=== PATIENT | male | born 1945 | race Caucasian/White ===

== ENCOUNTER 2023-07-05 07:05 | Inpatient (IN) | payer MEDICARE, OTHER ==
[~2023-07-05] VITALS: Ht 185.4 cm; Wt 86.5 kg
[2023-07-05 08:11] VITALS: BP 134/79; PULSE 81; RESP 18; O2SAT 97
[2023-07-05] MEDS: SODIUM CHLORIDE 0.9% 1,000 ML IV ONE (08:45)
[2023-07-05] MEDS ORDERED: CLINDAMYCIN 600MG IV 50 ML IV ONE (08:45)
[2023-07-05] MEDS ORDERED: cefTRIAXone 1GM/50ML D5W 50 ML IV ONE (08:45)
[2023-07-05] MEDS ORDERED: ENOXAPARIN SOD 40 MG/0.4 ML SYRINGE SC SCH (09:30)
[2023-07-05] MEDS ORDERED: DOCUSATE SOD 100 MG CAP PO PRN (09:30)
[2023-07-05] MEDS ORDERED: ONDANSETRON HCL 4 MG/2 ML VIAL IV PRN (09:30)
[2023-07-05] MEDS: SODIUM CHLORIDE 0.9% 1,000 ML IV SCH (09:30)
[2023-07-05] MEDS ORDERED: MORPHINE SULFATE INJ 2 MG/ml SYRG IV PRN (09:30)
[2023-07-05 10:01] LABS: Chloride 108 mmol/L (98-107); Sodium 141 mmol/L (136-145)
[2023-07-05 10:02] LABS: Anion Gap 6 (5-15); Calcium 8.8 mg/dL (8.5-10.1); Carbon Dioxide 27 mmol/L (20-30)
[2023-07-05 10:07] LABS: Blood Urea Nitrogen 15 mg/dL (9-23); Glucose 86 mg/dL (74-106)
[2023-07-05 10:11] LABS: Basophils # (auto) 0.1 10 ^3/uL (0-0.2); Basophils % (auto) 1.3 % (0.0-2.0); Eosinophils # (auto) 0.3 10 ^3/uL (0-0.8); Eosinophils % (auto) 5.9 % (0.0-7.0); Hematocrit 37.6 % (41.0-53.0); Hemoglobin 12.6 g/dL (13.5-17.5); Lymphocytes # (auto) 0.7 10 ^3/uL (0.4-5.4); Lymphocytes % (auto) 13.8 % (10.0-50.0); Mean Corpuscular Hemoglobin 32.3 pg (28.0-32.0); Mean Corpuscular Hgb Conc. 33.4 g/dL (32.0-36.0); Mean Corpuscular Volume 96.5 fL (80.0-100.0); Monocytes # (auto) 0.7 10 ^3/uL (0-1.3); Monocytes % (auto) 14.4 % (0.0-12.0); Neutrophils # (auto) 3.3 10 ^3/uL (1.6-8.6); Neutrophils % (auto) 64.6 % (37.0-80.0); Red Cell Distribution Width 14.3 % (11.8-14.3); White Blood Cell 5.1 10^3/uL (4.4-10.8)
[2023-07-05 10:48] LABS: Urine Bacteria FEW /hpf (None Seen); Urine Blood Negative /uL (Negative); Urine Clarity Clear (Clear); Urine Color Yellow (Yellow); Urine Hyaline Cast FEW /lpf (0 - 2); Urine Mucus FEW (None Seen); Urine Protein, UAD TRACE (Negative); Urine Specific Gravity 1.025 (1.001-1.035); Urine Urobilinogen 2 mg/dL (Negative); Urine WBC 60 /hpf (0 - 3)
[2023-07-05] MEDS ORDERED: CLINDAMYCIN 300MG IV 50 ML IV SCH (14:00)
== END 2023-07-05 13:04 | disposition left against medical advice (07) | DRG 603 ==
LOC: ER 07:05 → OVERFLOW 10:43
PROVIDERS: ADMIT Nurse Practitioner Family; ATTEND Nurse Practitioner Family
DX: L03.115 Cellulitis of right lower limb (principal); F17.210 Nicotine dependence, cigarettes, uncomplicated; Z53.29 Procedure and treatment not carried out because of patient's decision for other reasons
CPT/HCPCS: 36415; 80048; 81001; 85025; 87040; 93971; 96360; G0378

== ENCOUNTER 2024-07-29 00:37 | Inpatient (IN) | payer OTHER, MEDICARE ==
[~2024-07-29] VITALS: Ht 185.4 cm; Wt 89.6 kg
[2024-07-29] VITALS (9 sets, daily range): BP systolic 108–150; BP diastolic 72–101; PULSE 26–115; RESP 17–26; TEMP 98–98.6; O2SAT 93–99
--- NOTE | 2024-07-29 02:01 | DVH ---
CLINICAL HISTORY: Status post head injury TECHNIQUE: Helical imaging carried out from skull base to vertex without intravenous contrast. This e xam was performed according to our departmental dose optimization program. Up-to-date CT equipment an d radiation dose reduction techniques are utilized as appropriate. CTDIVol: 62.26 mGy DLP: 1302.8 mGy-cm WID: COMPARISON: None FINDINGS: Mild cerebral volume loss with concordant prominence of the subarachnoid spaces and ventricles. Mild patchy low attenuation in the cerebral white matter consistent with nonspecific white matter disease. Moderate right frontal scalp contusion. A smaller high posterior midline and left parietal scalp con tusion near the vertex. There is no midline shift or mass effect. The vasquez white matter interfaces are maintained. The basal cisterns are patent. There is no evidence of acute intracranial hemorrhage or extra-axial fluid raoul ection. The mastoid air cells and visualized paranasal sinuses are well-aerated. IMPRESSION: 1. Moderate sized right frontal scalp contusion and a smaller high posterior midline and left parieta l scalp contusion near the vertex. 2. No acute intracranial abnormality. 3. Mild cerebral volume loss and mild chronic microvascular ischemic change.
--- NOTE | 2024-07-29 02:12 | DVH ---
CLINICAL HISTORY: Status post fall off ladder TECHNIQUE: CT exam of the cervical spine was performed without intravenous contrast. This exam was pe rformed according to our departmental dose optimization program. Up-to-date CT equipment and radiatio n dose reduction techniques are utilized as appropriate. CTDI: 0.14+ 62.26 +11.38 DLP: 1302.8 WID: COMPARISON: None FINDINGS: Grade 1 anterolisthesis at C2-C3, C3-C4, C4-C5 and C7-T1, likely degenerative. The vertebral body hei ghts are maintained. No acute cervical fracture or subluxation is identified. There is multilevel moderate degenerative disc disease of the cervical spine with multilevel disc spa ce narrowing up to severe at C6-C7. Multilevel facet and uncovertebral hypertrophy results in multile jolanta neural foraminal stenosis up to severe bilaterally at C3-C4, severe on the right at C4-C5 and C5- C6 and moderate to severe bilaterally at C6-C7. There is multilevel disc osteophyte complexes resulti ng in multilevel mild spinal stenosis. The paraspinous soft tissues are unremarkable. Mildly displaced fracture of the posterior left 3rd rib. There is soft tissue emphysema in the poste rior left chest wall. There is a moderate left pneumothorax. There is mild emphysema. There is a analytics associate catrachita medial left clavicle fracture deformity with bony bridging, though fracture line remains visible. IMPRESSION: 1. Moderate left pneumothorax. 2. Mildly displaced fracture of the posterior left 3rd rib partially imaged. 3. No acute cervical spine fracture or traumatic malalignment. 4. Multilevel degenerative neural foraminal stenosis up to severe bilaterally at C3-C4 and on the rig ht at C4-C5 and C5-C6. 5. Multilevel mild degenerative spinal stenosis. 6. Fracture deformity of the medial left clavicle with bony bridging although fracture line remains v isible. 7. Mild emphysema. Critical Result: Left pneumothorax. Findings discussed with NEW SANCHEZ at 07/29/2024 02:07 AM, and acknowledged receipt and understandi ng of the findings. ..
--- NOTE | 2024-07-29 02:46 | ED.PDOC ---
Mult. trauma (HPI) HPI Comments C/C: HEAD INJURY S/P FALLING OFF A LADDER ABOUT 8FT HIGH. MODERATELY BLEEDING AND UNCONTROLLED. PATIENT DENIES LOC, DENIES PAIN. DUE TO AMOUNT OF BLOOD, UNABLE TO FULLY ASSESS ENTIRE WOUND AT THIS TIME. WHEN TOWEL WAS REMOVED TO ASSESS INJURY, BLOOD SHOT UPWARD, SO WOUND WAS RECOVERED. ALL VSS. A&OX4 Chief Complaint: Head Injury Time Seen by MD: 01:02 Reviewed notes: Human Resource Consultant Notes, Medications, Allergies Allergies: Coded Allergies: NO KNOWN ALLERGIES (Unverified , 07/29/24) Information Source: Patient Mode of Arrival: Ambulatory Past Medical History PAST MEDICAL HISTORY: COPD Past Medical History (Other): Emphysema Surgical History: Denies all surgeries Family History Family History: Reviewed,noncontributory to illness Social History Smoker: Cigarettes Alcohol: Denies ETOH Use Drugs: Denies Drug Use Lives In: Home Constitutional: denies: chills, diaphoresis, fatigue, fever, malaise, sweats, weakness, others EENTM: denies: blurred vision, double vision, ear bleeding, ear discharge, ear drainage, ear pain, ear ringing, eye pain, eye redness, hearing loss, mouth pain, mouth swelling, nasal discharge, nose bleeding, nose congestion, nose pain, photophobia, tearing, throat pain, throat swelling, voice changes, others Cardiovascular: denies: chest pain, dizzy spells, diaphoresis, Dyspnea on exertion, edema, irregular heart beat, left arm pain, lightheadedness, palpitations, PND, syncope, others Gastrointestinal: denies: abdomen distended, abdominal pain, blood streaked bowels, constipated, diarrhea, dysphagia, difficulty swallowing, hematemesis, melena, nausea, poor appetite, poor fluid intake, rectal bleeding, rectal pain, vomiting, others Genitourinary: denies: burning, dysuria, flank pain, frequency, hematuria, incontinence, penile discharge, penile sore, pain, testicle pain, testicle swelling, urgency, others Neurological: reports: headache; denies: dizziness, fainting, left sided numbness, left sided weakness, numbness, paresthesia, pre-existing deficit, right sided numbness, right sided weakness, seizure, speech problems, tingling, tremors, weakness, others Musculoskeletal: denies: back pain, gout, joint pain, joint swelling, muscle pain, muscle stiffness, neck pain, others Integumetry: denies: bruises, change in color, change in hair/nails, dryness, laceration, lesions, lumps, rash, wounds, others Allergic/Immunocompromised: denies: Difficulty Healing, Frequent Infections, Hives, Itching, others Hematologic/Lymphatic: denies: anemia, blood clots, easy bleeding, easy bruising, swollen glands, others Endocrine: denies: excessive hunger, excessive sweating, excessive thirst, excessive urination, flushing, intolerance to cold, intolerance to heat, unexplained weight gain, unexplained weight loss, others Psychiatric: denies: anxiety, bipolar disorder, depression, hopeless, panic disorder, schizophrenia, sleepless, suicidal, others Physical Exam General Appearance: No Apparent Distress, Normal HEENT: Normal ENT Inspection, Pharynx Normal, TMs Normal Neck: Full Range of Motion, Non-Tender Respiratory: Chest Non-Tender, Lungs Clear, No Respiratory Distress, Normal Breath Sounds Cardiovascular: No Edema, No JVD, No Murmur, No Gallop, Normal Peripheral Pulses, Regular Rate/Rhythm Breast Exam: Deferred Gastrointestinal: No Organomegaly, Non Tender, No Pulsatile Mass, Normal Bowel Sounds, Soft Genitalia: Deferred Pelvic: Deferred Rectal: Deferred Extremities: No calf tenderness, Normal capillary refill, Normal inspection, Normal range of motion, Non-tender, No pedal edema Musculoskeletal : Apperance: Normal Neurologic: Alert, branch manager trainee II-XII nml as Tested, No Motor Deficits, Normal Affect, Normal Mood, No Sensory Deficits Cerebellar Function: Normal Reflexes: Normal Skin: Dry, Lacerations (Half-dollar size open laceration to top of scalp), Normal Color, Warm Lymphatic: No Adenopathy Was a procedure done? Was a procedure done?: No Differential Diagnosis Multiple Trauma: Closed Head Injury, Fractures, Cerebral Contusion, Spine Injury Neck Injury: Cervical Fracture, Spinal Cord Injury X-Ray, Labs, Meds, VS Vital Signs Date Time Temp Pulse Resp B/P (MAP) Pulse Ox O2 Delivery O2 Flow Rate FiO2 07/29/24 05:00 99 11 154/90 (111) 99 07/29/24 03:59 98 15 147/86 07/29/24 03:29 110 16 138/80 07/29/24 03:00 110 16 138/80 (99) 94 5/26/25 01:20 26 26 94 Room Air* 0 21 07/29/24 01:18 97.8 98 26 142/95 (111) 94 97.8 07/29/24 01:14 98.2 73 18 159/99 (119) 94 98.2 07/29/24 01:00 98.2 65 17 121/73 (89) 98 98.2 Lab Test 07/29/24 04:36 07/29/24 02:31 Range/Units White Blood Count 8.0 4.4-10.8 10^3/uL Red Blood Count 3.85 L 4.5-5.90 10^6/uL Hemoglobin 12.4 L 13.5-17.5 g/dL Hematocrit 36.9 L 41.0-53.0 % Mean Corpuscular Volume 96.0 80.0-100.0 fL Mean Corpuscular Hemoglobin 32.3 H 28.0-32.0 pg Mean Corpuscular Hemoglobin Concent 33.7 32.0-36.0 g/dL Red Cell Distribution Width 14.0 11.8-14.3 % Platelet Count 179 140-450 10^3/uL Mean Platelet Volume 7.5 6.9-10.8 fL Neutrophils (%) (Auto) 80.0 37.0-80.0 % Lymphocytes (%) (Auto) 7.1 L 10.0-50.0 % Monocytes (%) (Auto) 11.2 0.0-12.0 % Eosinophils (%) (Auto) 1.2 0.0-7.0 % Basophils (%) (Auto) 0.5 0.0-2.0 % Neutrophils # (Auto) 6.4 1.6-8.6 10 ^3/uL Lymphocytes # (Auto) 0.6 0.4-5.4 10 ^3/uL Monocytes # (Auto) 0.9 0-1.3 10 ^3/uL Eosinophils # (Auto) 0.1 0-0.8 10 ^3/uL Basophils # (Auto) 0 0-0.2 10 ^3/uL Nucleated Red Blood Cells 0.1 % Sodium Level 140 136-145 mmol/L Potassium Level 4.8 3.5-5.1 mmol/L Chloride Level 108 H 98-107 mmol/L Carbon Dioxide Level 23 20-31 mmol/L Anion Gap 9 5-15 Blood Urea Nitrogen 41 H 9-23 mg/dL Creatinine 1.94 H 0.700-1.30 mg/dL Glomerular Filtration Rate Calc 35 >90 mL/min BUN/Creatinine Ratio 21.1 H 10.0-20.0 Serum Glucose 100 74-106 mg/dL Hemoglobin A1c 5.2 <5.7 % A1C Calcium Level 8.6 L 8.7-10.4 mg/dL Total Bilirubin 1.0 0.2-1.0 mg/dL Aspartate Amino Transferase (AST) 95 H 13-40 U/L Alanine Aminotransferase (ALT) 40 7-40 U/L Alkaline Phosphatase 105 46-116 U/L Total Protein 7.0 5.7-8.2 g/dL Albumin 3.6 3.2-4.8 g/dL Vitamin B12 Level 505 211-911 pg/mL Vitamin D 25-Hydroxy 40.5 30.0-100 ng/mL Folic Acid 23.23 >5.38 ng/mL Thyroid Stimulating Hormone (TSH) 2.78 0.55-4.78 uIU/mL Plasma/Serum Blood Alcohol < 3.0 <10 mg/dL Hepatitis B Surface Antibody Negative Negative Hepatitis B Core IgM Antibody Negative Negative Hepatitis C Antibody Positive *A Negative POC Glucose 103 70-106 mg/dl X-Ray, Labs, Meds, VS Comment IMAGING: CT BRAIN/HEAD IMPRESSION: 1. Moderate sized right frontal scalp contusion and a smaller high posterior midline and left parietal scalp contusion near the vertex. 2. No acute intracranial abnormality. 3. Mild cerebral volume loss and mild chronic microvascular ischemic change. CT CERVICAL SPINE IMPRESSION: 1. Moderate left pneumothorax. 2. Mildly displaced fracture of the posterior left 3rd rib partially imaged. 3. No acute cervical spine fracture or traumatic malalignment. 4. Multilevel degenerative neural foraminal stenosis up to severe bilaterally at C3-C4 and on the right at C4-C5 and C5-C6. 5. Multilevel mild degenerative spinal stenosis. 6. Fracture deformity of the medial left clavicle with bony bridging although fracture line remains visible. 7. Mild emphysema. PENDING CT CHEST PLAN: Patient placed for admission orders for hospitalist. Diagnosis: Moderate left pneumothorax, with chest tube Rib fracture Clavicle fracture Status post fall Clavicle fracture Time of 1ST Reevaluation: 00:55 Reevaluation 1ST: Unchanged Patient Education/Counseling: Diagnosis, Treatment, Prognosis, Need For Follow Up Family Education/Counseling: Diagnosis, Treatment, Prognosis, Need For Follow Up Departure 1 Departure Time of Disposition: 04:12 Impression: Primary Impression: Pneumothorax on left Additional Impressions: Closed head injury Qualified Codes: S09.90XA - Unspecified injury of head, initial encounter Rib fractures Qualified Codes: S22.42XA - Multiple fractures of ribs, left side, initial encounter for closed fracture Clavicle fracture Qualified Codes: S42.002A - Fracture of unspecified part of left clavicle, initial encounter for closed fracture Disposition: 09 ADMITTED INPATIENT Condition: Stable Discharged With: Self Critical Care Note Critical Care Time?: No Stability Stability form required: NEW Jamison July 29, 2024 02:46
[2024-07-29] MEDS: ONDANSETRON HCL 4 MG/2 ML VIAL IV ONE ×2 (03:29→09:24)
[2024-07-29] MEDS: MORPHINE SULFATE 4 MG/ML SYR/VIAL IV ONE (03:29)
[2024-07-29] MEDS: SODIUM CHLORIDE 0.9% 1,000 ML IV ONE (03:43)
--- NOTE | 2024-07-29 04:40 | DVHNC2 ---
Procedure - Patient with a moderate-sized pneumothorax. I performed a left chest tube insertion. I cleaned the area with chlorhexidine. I anesthetized the area with 1% lidocaine. I used a Jeff pneumothorax kit. I placed a pigtail catheter. Patient tolerated the procedure well without complications. GREGG KILGORE MD July 29, 2024 04:40
[2024-07-29 05:15] LABS: Basophils # (auto) 0 10 ^3/uL (0-0.2); Basophils % (auto) 0.5 % (0.0-2.0); Eosinophils # (auto) 0.1 10 ^3/uL (0-0.8); Eosinophils % (auto) 1.2 % (0.0-7.0); Hematocrit 36.9 % (41.0-53.0); Hemoglobin 12.4 g/dL (13.5-17.5); Lymphocytes # (auto) 0.6 10 ^3/uL (0.4-5.4); Lymphocytes % (auto) 7.1 % (10.0-50.0); Mean Corpuscular Hemoglobin 32.3 pg (28.0-32.0); Mean Corpuscular Hgb Conc. 33.7 g/dL (32.0-36.0); Monocytes # (auto) 0.9 10 ^3/uL (0-1.3); Monocytes % (auto) 11.2 % (0.0-12.0); Neutrophils # (auto) 6.4 10 ^3/uL (1.6-8.6); Nucleated Red Blood Cells % 0.1 %; Platelet Count (auto) 179 10^3/uL (140-450); Red Blood Cells 3.85 10^6/uL (4.5-5.90)
[2024-07-29] MEDS: LIDOCAINE W/ EPINEPHRINE 1% 20ML VIAL ID ONE (05:25)
[2024-07-29 05:30] LABS: Alanine Aminotransferase 40 U/L (7-40); Albumin 3.6 g/dL (3.2-4.8); Alkaline Phosphatase 105 U/L (46-116); Anion Gap 9 (5-15); Aspartate Aminotransferase 95 U/L (13-40); BUN/Creatinine Ratio 21.1 (10.0-20.0); Blood Urea Nitrogen 41 mg/dL (9-23); Calcium 8.6 mg/dL (8.7-10.4); Carbon Dioxide 23 mmol/L (20-31); Chloride 108 mmol/L (98-107); Glucose 100 mg/dL (74-106); Potassium 4.8 mmol/L (3.5-5.1); Sodium 140 mmol/L (136-145)
[2024-07-29] MEDS ORDERED: ONDANSETRON HCL 4 MG/2 ML VIAL IV PRN (05:45)
[2024-07-29] MEDS ORDERED: HYDROcodone-ACET 5/325MG TAB PO PRN (05:45)
[2024-07-29] MEDS ORDERED: ACETAMINOPHEN 325 MG TAB PO PRN (05:45)
[2024-07-29] MEDS: SODIUM CHLORIDE 0.9% 1,000 ML IV SCH (05:51)
--- NOTE | 2024-07-29 05:54 | DVHHP2 ---
History of Present Illness History of Present Illness Patient is 79 year old male with past medical of COPD was brought in after had a fall. As per patient he had the fall and hit his head. Patient reported he fell from a ladder almost 8 food when he was wheezing is house building a new room on the 2nd floor, he fell on his back and hit his head. Patient denied hitting chest or loss of consciousness. Patient had laceration on the scalp on the anterior and on the top of the scalp. Patient denied any chest pain no shortness a breath. CT Scan of the cervical spine revealed- Moderate left pneumothorax. Mildly displaced fracture of the posterior left 3rd rib partially imaged. No acute cervical spine fracture or traumatic malalignment. Multilevel degenerative neural foraminal stenosis up to severe bilaterally at C3-C4 and on the right at C4-C5 and C5-C6. Multilevel mild degenerative spinal stenosis. Fracture deformity of the medial left clavicle with bony bridging although fra cture line remains visible. Mild emphysema.CT HEAD -Moderate sized right frontal scalp contusion and a smaller high posterior midline and left parietal scalp contusion near the vertex. No acute intracranial abnormality. Mild cerebral volume loss and mild chronic microvascular ischemic change. CT chest-Moderate left pneumothorax with left lung interstitial opacities as seen on CT cervical spine. Mildly displaced left 1st and 2nd rib fractures. Cirrhotic liver morphology. Additional incidental findings as detailed above. CXR-Cardiomegaly. Left interstitial opacities. Possible trace left pleural effusion. CT abdomen and pelvis- Hepatic cirrhosis, Hyperdense right upper pole exophytic renal mass measuring 15 mm. This measures greater than fluid density. Ultrasound recommended. 3.3 cm hyperdense left lower pole exophytic mass measuring greater than fluid density. Dedicated renal ultrasound recommended. Past Medical History COPD Past Surgical History Bilateral hernia repair Past Social History Smoker, denies alcoholism or substance abuse Review of Systems Review of Systems Allergy- NKDA Patient was seen today at the bedside. P Cardiovascular- deny acute chest pain or shortness of breath or cough or palpitation Respiratory denies cough or short of breath or wheezing Gastrointestinal- denies any rectal bleeding, nausea or vomiting Musculoskeletal-denies acute joint swelling or tenderness or redness Neurological- denies acute dysarthria, dysphagia, change in vision Psychiatry- denies depression or SI or HI Skin- bruise on bilateral forearms Allergies: Coded Allergies: NO KNOWN ALLERGIES (Unverified , 07/29/24) Medications Current Medications Medications Dose Ordered Sig/Vinicius Route Start Time Stop Time Status Last Admin Dose Admin Sodium Chloride 10 ml Q8HR IV 07/29/24 06:00 UNV Sodium Chloride 1,000 ml @ 120 mls/hr Q8H20M IV 07/29/24 05:45 UNV Acetaminophen/ Hydrocodone Bitart 1 tab Q4HP PRN PO 07/29/24 05:45 UNV Ondansetron HCl 4 mg Q4HP PRN IV 07/29/24 05:45 UNV Acetaminophen 650 mg Q6HP PRN PO 07/29/24 05:45 UNV Exam Vital Signs Vital Signs Date Time Temp Pulse Resp B/P (MAP) Pulse Ox O2 Delivery O2 Flow Rate FiO2 07/29/24 03:29 110 16 138/80 07/29/24 01:14 98.2 94 98.2 Exam General examination- patient as cut injury on the scalp on the front and also in the top of the scalp, left hand swelling over left wrist HEENT- PEERLA,-open wound on the scalp Cardiovascular- S1-S2 audible, rate and rhythm regular, no murmur Respiratory- chest tube placed on the left side of the chest, no wheezing Gastrointestinal-nontender, bowel sound+. Nondistended Musculoskeletal-no acute joint swelling or tenderness or redness extremity- no leg edema, swelling over the left wrist close to the great to thumb Neurological--scalp injury on the front and the under top of the scalp Psychiatry- denies depression or SI or HI Skin- bruise in the bilateral forearm Labs/Xrays Labs Test 07/29/24 04:36 07/29/24 02:31 Range/Units White Blood Count 8.0 4.4-10.8 10^3/uL Red Blood Count 3.85 L 4.5-5.90 10^6/uL Hemoglobin 12.4 L 13.5-17.5 g/dL Hematocrit 36.9 L 41.0-53.0 % Mean Corpuscular Volume 96.0 80.0-100.0 fL Mean Corpuscular Hemoglobin 32.3 H 28.0-32.0 pg Mean Corpuscular Hemoglobin Concent 33.7 32.0-36.0 g/dL Red Cell Distribution Width 14.0 11.8-14.3 % Platelet Count 179 140-450 10^3/uL Mean Platelet Volume 7.5 6.9-10.8 fL Neutrophils (%) (Auto) 80.0 37.0-80.0 % Lymphocytes (%) (Auto) 7.1 L 10.0-50.0 % Monocytes (%) (Auto) 11.2 0.0-12.0 % Eosinophils (%) (Auto) 1.2 0.0-7.0 % Basophils (%) (Auto) 0.5 0.0-2.0 % Neutrophils # (Auto) 6.4 1.6-8.6 10 ^3/uL Lymphocytes # (Auto) 0.6 0.4-5.4 10 ^3/uL Monocytes # (Auto) 0.9 0-1.3 10 ^3/uL Eosinophils # (Auto) 0.1 0-0.8 10 ^3/uL Basophils # (Auto) 0 0-0.2 10 ^3/uL Nucleated Red Blood Cells 0.1 % Sodium Level 140 136-145 mmol/L Potassium Level 4.8 3.5-5.1 mmol/L Chloride Level 108 H 98-107 mmol/L Carbon Dioxide Level 23 20-31 mmol/L Anion Gap 9 5-15 Blood Urea Nitrogen 41 H 9-23 mg/dL Creatinine 1.94 H 0.700-1.30 mg/dL Glomerular Filtration Rate Calc 35 >90 mL/min BUN/Creatinine Ratio 21.1 H 10.0-20.0 Serum Glucose 100 74-106 mg/dL Calcium Level 8.6 L 8.7-10.4 mg/dL Total Bilirubin 1.0 0.2-1.0 mg/dL Aspartate Amino Transferase (AST) 95 H 13-40 U/L Alanine Aminotransferase (ALT) 40 7-40 U/L Alkaline Phosphatase 105 46-116 U/L Total Protein 7.0 5.7-8.2 g/dL Albumin 3.6 3.2-4.8 g/dL POC Glucose 103 70-106 mg/dl Assessment/Plan Assessment/Plan Assessment and plan Fall Head injury-patient had 5 suture and 20 moon on the scalp Scalp laceration and cut injury on the top in the front of the skull Left-sided pneumothorax, status post chest tube placement Acute hypoxic respiratory failure likely from pneumothorax Left clavicular fracture Left 3rd rib fracture in the posterior side Bruise in the bilateral forearms History of COPD, no acute exacerbation Emphysema mild Multilevel degenerative neural foraminal stenosis up to severe bilaterally at C3-C4 and on the right at C4-C5 and C5-C6. Multilevel mild degenerative spinal stenosis. Moderate sized right frontal scalp contusion and a smaller high posterior midline and left parietal scalp contusion near the vertex Mildly displaced fracture of the posterior left 3rd rib Suspected liver cirrhosis Left pleural effusion Bilateral renal mass CT Scan of the cervical spine revealed- Moderate left pneumothorax. Mildly displaced fracture of the posterior left 3rd rib partially imaged. No acute cervical spine fracture or traumatic malalignment. Multilevel degenerative neural foraminal stenosis up to severe bilaterally at C3-C4 and on the right at C4-C5 and C5-C6. Multilevel mild degenerative spinal stenosis. Fracture deformity of the medial left clavicle with bony bridging although fracture line remains visible. Mild emphysema. CT HEAD -Moderate sized right frontal scalp contusion and a smaller high posterior midline and left parietal scalp contusion near the vertex. No acute intracranial abnormality. Mild cerebral volume loss and mild chronic microvascular ischemic change. CXR-Cardiomegaly. Left interstitial opacities. Possible trace left pleural effusion. CT abdomen and pelvis- Hepatic cirrhosis, Hyperdense right upper pole exophytic renal mass measuring 15 mm. This measures greater than fluid density. Ultrasound recommended. 3.3 cm hyperdense left lower pole exophytic mass measuring greater than fluid density. Dedicated renal ultrasound recommended. Plan ordered Repeat chest x-ray at 12:00 p.m. today Status post left-sided chest tube placement Moon and suture on the scalp -20 moon, 5 sutures Ordered blood typing and cross matching Ordered two 20 gauge IV cannula Ordered ultrasound of the renal system to rule out any mass lesion Continue IV fluid as prescribed Pantoprazole as prescribed No DVT prophylaxis has moment as patient had active bleeding from scalp injury Monitor vitals Pain medication as prescribed Ordered orthopedic consult for clavicle fracture Monitor GCS Ordered UDS Goals of care, Code status ; discussed with >15 minutes PUD prophylaxis: pantoprazole DVT prophylaxis: Patient had active bleeding from the scalp cut injury Plan discussed with Dr. Gabriel , nursing staff, Total time spent on patient evaluation, chart review, assessment and plan, discussion discussion >35 minutes Plan discussed with: Patient, Other (RN) My Orders Orders - JAYE KILPATRICK RESIDENT Procedure Category Date Status Time Admit ADMIT 07/29/24 Transmitted 05:34 Code Status CODE 07/29/24 Transmitted 05:34 Sodium Chloride Lock PHA 07/29/24 Logged (Saline Lock Ns) 06:00 Sodium Chloride 0.9% PHA 07/29/24 Logged 05:45 Hydrocodone-Acet PHA 07/29/24 Logged 5/325mg Tab ([place] 05:45 Ondansetron Hcl PHA 07/29/24 Logged (Zofran) 05:45 Complete Blood Count LAB 07/30/24 Verified 04:00 Comprehensive LAB 07/30/24 Verified Metabolic Panel 04:00 Acetaminophen Tablet PHA 07/29/24 Logged (Tylenol Tablet) 05:45 Oxygen By Nasal RT 07/29/24 Transmitted Cannula 05:34 Notify Md Of Changes VANESSA 07/29/24 In Process From Base 05:34 Vice President Payer For VANESSA 07/29/24 In Process 24 Hours 05:34 Type And Screen BBK 07/29/24 Transmitted 05:36 Date of Service: July 29, 2024 Billing Provider: BLADIMIR GABRIEL MD Common Visit Codes: 45710-[id number] INP/OBS CARE (HIGH) Secondary Visit Codes: 52057-NRLBDIZI CARE PLAN 30 MINUTES JAYE KILPATRICK RESIDENT July 29, 2024 05:54
--- NOTE | 2024-07-29 05:57 | DVH ---
EXAM: XY CHEST XRAY 1 VIEW Indication: CHEST TUBE PLACEMENT Technique: Single frontal view of the chest was obtained Comparison: None FINDINGS: Lines and Tubes: Left pigtail catheter is visualized. Lungs: Left interstitial opacities. Pleura: Possible trace left pleural effusion. No pneumothorax. Cardiomediastinal contours: Cardiomegaly. Bones: No acute osseous abnormality. IMPRESSION: Cardiomegaly. Left interstitial opacities. Possible trace left pleural effusion.
--- NOTE | 2024-07-29 06:01 | DVH ---
Exam: CT CT AB PEL WO CON-NO ORAL OR IV History: UPPER ABDOMINAL PAIN STATUS POST TRAUMA Comparison Study: None Technique: Multidetector spiral CT of the abdomen was performed from lung bases to pubic symphysis. Imaging was performed without IV contrast. Axial, coronal and sagittal multiplanar reformats were ob tained from the axial data set by the technologist. Radiation Dose : CTDI volume is 10.75 mGy. Dose-length product is 536.17 mGy*cm Findings: Evaluation of solid organs is limited due to lack of intravenous contrast use. Lung Bases: Known left pneumothorax. Liver: Hepatic cirrhosis Gallbladder and Biliary Tree: Unremarkable Spleen: Unremarkable Pancreas: The pancreas is grossly normal in appearance. Adrenal Glands: Unremarkable Kidneys: Hyperdense right upper pole exophytic renal mass measuring 15 mm. This measures greater than fluid de nsity. Ultrasound recommended. 3.3 cm hyperdense left lower pole exophytic mass measuring greater anuja n fluid density. Dedicated renal ultrasound recommended. No hydronephrosis. Bladder: Grossly unremarkable for degree of distention. Bowel: The stomach is grossly normal in appearance. Small bowel and colon are normal in caliber and d istribution. The appendix is not visualized; however, no secondary findings of acute appendicitis id entified. Ascites: Absent Lymphadenopathy: No mesenteric, retroperitoneal or periportal lymphadenopathy. Abdominal Wall and Mesentery: Unremarkable. Vasculature: The visualized abdominal aorta is normal in size and caliber. Evaluation of abdominal a nd pelvic vessels is limited due to lack of intravenous contrast. Pelvic Organs: Unremarkable Musculoskeletal: No aggressive focal bony lesions, acute fractures or dislocation. IMPRESSION: No acute abdominal or pelvic findings. Hepatic cirrhosis. Hyperdense right upper pole exophytic renal mass measuring 15 mm. This measures greater than fluid de nsity. Ultrasound recommended. 3.3 cm hyperdense left lower pole exophytic mass measuring greater anuja n fluid density. Dedicated renal ultrasound recommended. Patient has a known left pneumothorax. Dedicated CT chest is recommended. Radiation optimization: All CT scans at this facility use at least one of these dose optimization marce hniques: automated exposure control mA and/or kV adjustment per patient size (includes targeted exam s where dose is matched to clinical indication) or iterative reconstruction. END IMPRESSION:
--- NOTE | 2024-07-29 06:01 | DVH ---
Procedure: CT CHEST WITHOUT CONTRAST Reason for study/Clinical History: possible pneumothorax on CT of cervical spine Comparison Study: 07/29/2024 Exam Date: 07/29/2024 02:34 AM TECHNIQUE: Multidetector CT of the chest was performed from the lung apices to the upper abdomen with out the use of intravenous contract. Axial, coronal and sagittal multiplanar reformats were performed . RADIATION DOSE: CTDI volume is 9.63 mGy. Dose-length product is 406.8 mGy*cm The dose indicators for CT are the volume Computed Tomography (CT) Dose Index (CTDIvol) and the Dose Length Product (DLP), and are measured in units of mGy and mGy-cm, respectively. These indicators are not patient dose, but values generated from the CT scanner acquisition factors. The report includes radiation exposure data for exposures received during this examination. FINDINGS: Lower neck: Normal thyroid. Lungs: Moderate left pneumothorax with left lung interstitial opacities. Heart/Vascular Structures: Mild cardiomegaly. No pericardial effusion. Moderate atherosclerotic vascu lar disease of the thoracic aorta. Severe atherosclerotic vascular disease of the coronary arteries. Lymph Nodes: No adenopathy Musculoskeletal: There is a mildly displaced fracture of the 1st and 2nd left ribs. Soft tissues: Subcutaneous gas is visualized in the left chest wall. Upper abdomen: Limited portions of the upper demonstrates cirrhotic liver morphology. Bilateral renal stones partially visualized. Abdominal aortic aneurysm measuring 3.6 cm. IMPRESSION: Moderate left pneumothorax with left lung interstitial opacities as seen on CT cervical spine. Mildly displaced left 1st and 2nd rib fractures. Cirrhotic liver morphology. Additional incidental findings as detailed above. Radiation optimization: All CT scans at this facility use at least one of these dose optimization marce hniques: automated exposure control mA and/or kV adjustment per patient size (includes targeted exam s where dose is matched to clinical indication) or iterative reconstruction.
[2024-07-29] MEDS: SODIUM CHLOR 0.9% PF (SALINE LOCK) 10ML VIAL/SYR IV SCH (06:02)
[2024-07-29] MEDS ORDERED: ALBUTEROL SULF 2.5 MG/0.5ML(0.5%) NEB SOLN NEB PRN (06:30)
[2024-07-29] MEDS ORDERED: IPRATROPIUM BROM 0.5 MG/2.5ML INH SOL NEB PRN (06:30)
[2024-07-29] MEDS: PANTOPRAZOLE 40 MG/10 ML VIAL INJ IV ONE (07:24)
--- NOTE | 2024-07-29 07:41 | DVH ---
INDICATION: Renal mass TECHNIQUE: Multiple real-time sonographic images of the kidneys and bladder were obtained. COMPARISON: None FINDINGS: RIGHT kidney measures 11.5 cm in length. No hydronephrosis. LEFT kidney measures 9.7 cm in length. No hydronephrosis. Exophytic lesion of the lower pole of the left kidney measures 3.6 cm. No large intraluminal masses are seen in the bladder. IMPRESSION: Exophytic lesion in the lower pole of the left kidney measures 3.6 cm. Renal cell neoplasm is not exc luded. This can be further evaluated with nonemergent CT or MRI renal mass protocol.
--- NOTE | 2024-07-29 08:27 | DVH ---
CHEST RADIOGRAPH Indication: Pnemothorax Technique: Single frontal view of the chest was obtained COMPARISON: XY CHEST XRAY 1 VIEW on DOS: 07/29/24 FINDINGS: Lines and Tubes: Left chest tube in satisfactory position. Lungs: Clear Pleura: No effusion. No pneumothorax. Cardiomediastinal contours: Cardiomegaly Bones: Unremarkable IMPRESSION: No appreciable pneumothorax with left chest tube in-situ.
--- NOTE | 2024-07-29 08:28 | DVH ---
CLINICAL INDICATION: fall, trauma, pain TECHNIQUE: XY L HAND 2V XRAY Comparison: None FINDINGS/IMPRESSION: : There is no evidence of acute fracture or dislocation. Soft tissues are unremarkable. Diffuse advanced degenerative changes most severe at the 1st CMC and radiocarpal joint space.
[2024-07-29 08:35] LABS: Urine Bacteria None Seen /hpf (None Seen)
[2024-07-29 08:51] LABS: Urine Blood TRACE /uL (Negative); Urine Clarity Clear (Clear); Urine Color Yellow (Yellow); Urine Hyaline Cast FEW /lpf (0 - 2); Urine Protein, UAD TRACE (Negative); Urine Squamous Epithelial Cell None Seen /hpf (<5); Urine Urobilinogen Normal (Negative); Urine WBC 36 /HPF (0-3)
[2024-07-29 09:02] LABS: Amphetamine Screen, Urine Pos (NEGATIVE); Barbiturate Scree,Urine Neg (NEGATIVE); Benzodiazephine Screen, Urine Neg (NEGATIVE); Cannabinoid Screen, Urine Neg (NEGATIVE); Cocaine Screen, Urine Neg (NEGATIVE); Opiate Scree,Urine Pos (NEGATIVE); Phencyclidine Screen, Urine Neg (NEGATIVE)
[2024-07-29] MEDS: HYDROmorphone HCL 2 MG/ML VL/or syr IV ONE (09:24)
[2024-07-29 09:49] LABS: Hepatitis B Surface Antibody Negative (Negative)
[2024-07-29 10:05] LABS: Basophils # (auto) 0 10 ^3/uL (0-0.2); Basophils % (auto) 0.5 % (0.0-2.0); Eosinophils # (auto) 0.1 10 ^3/uL (0-0.8); Eosinophils % (auto) 2.4 % (0.0-7.0); Hematocrit 33.6 % (41.0-53.0); Hemoglobin 11.5 g/dL (13.5-17.5); Lymphocytes # (auto) 0.7 10 ^3/uL (0.4-5.4); Lymphocytes % (auto) 12.5 % (10.0-50.0); Mean Corpuscular Hemoglobin 32.3 pg (28.0-32.0); Mean Corpuscular Hgb Conc. 34.1 g/dL (32.0-36.0); Mean Corpuscular Volume 94.8 fL (80.0-100.0); Monocytes # (auto) 0.8 10 ^3/uL (0-1.3); Monocytes % (auto) 12.9 % (0.0-12.0); Neutrophils # (auto) 4.3 10 ^3/uL (1.6-8.6); Neutrophils % (auto) 71.7 % (37.0-80.0); Platelet Count (auto) 153 10^3/uL (140-450); Red Blood Cells 3.55 10^6/uL (4.5-5.90); Red Cell Distribution Width 14.2 % (11.8-14.3); White Blood Cell 5.9 10^3/uL (4.4-10.8)
[2024-07-29 10:27] LABS: Alanine Aminotransferase 34 U/L (7-40); Alkaline Phosphatase 99 U/L (46-116); Anion Gap 6 (5-15); BUN/Creatinine Ratio 22.5 (10.0-20.0); Carbon Dioxide 23 mmol/L (20-31); Glucose 94 mg/dL (74-106); Potassium 4.9 mmol/L (3.5-5.1); Sodium 141 mmol/L (136-145); Total Protein 6.5 g/dL (5.7-8.2)
[2024-07-29 10:28] LABS: Albumin 3.4 g/dL (3.2-4.8); Bilirubin, Total 1.2 mg/dL (0.2-1.0)
[2024-07-29 10:29] LABS: Aspartate Aminotransferase 88 U/L (13-40); Blood Urea Nitrogen 36 mg/dL (9-23); Calcium 8.6 mg/dL (8.7-10.4); Chloride 112 mmol/L (98-107)
[2024-07-29 10:38] LABS: Hepatitis B Core IgM Negative (Negative)
[2024-07-29 10:40] LABS: Hepatitis C Antibody Positive (Negative)
[2024-07-29 12:14] LABS: Folate (Folic Acid) 23.23 ng/mL (>5.38)
--- NOTE | 2024-07-29 14:37 | DVHPN2 ---
Reviewed: Care Plan, H&P, Labs, Medications, Previous Orders, Radiology Changes from previous H/P or p: No Changes Objective Vitals Vital Signs Date Time Temp Pulse Resp B/P (MAP) Pulse Ox O2 Delivery O2 Flow Rate FiO2 07/29/24 14:00 88 18 119/83 (95) 98 07/29/24 07:18 98.0 2.0 28 98.0 07/29/24 07:15 Nasal Cannula* Intake/Output Intake and Output 07/29/24 07:00 Intake Total 1120 ml Balance 1120 ml Intake IV Total 1120 ml Medications Current Medications Medications Dose Ordered Sig/Vinicius Route Start Time Stop Time Status Last Admin Dose Admin Sodium Chloride 10 ml Q8HR IV 07/29/24 06:00 07/29/24 10:17 10 ML Sodium Chloride 1,000 ml @ 120 mls/hr Q8H20M IV 07/29/24 05:45 07/29/24 14:19 120 MLS/HR Ondansetron HCl 4 mg Q4HP PRN IV 07/29/24 05:45 Acetaminophen 650 mg Q6HP PRN PO 07/29/24 05:45 Pantoprazole Sodium 40 mg BID IV 07/29/24 22:00 Oxycodone/ Acetaminophen 1 tab Q6HP PRN PO 07/29/24 06:15 Albuterol 2.5 mg Q6HPRN PRN NEB 07/29/24 06:30 Ipratropium [place] 0.5 mg Q6HPRN PRN NEB 07/29/24 06:30 Laboratory Results Laboratory Tests 07/29/24 09:55 Chemistry Test 07/29/24 04:36 07/29/24 09:55 Albumin 3.6 g/dL (3.2-4.8) 3.4 g/dL (3.2-4.8) Calcium Level 8.6 mg/dL (8.7-10.4) L 8.6 mg/dL (8.7-10.4) L Total Protein 7.0 g/dL (5.7-8.2) 6.5 g/dL (5.7-8.2) LFT Test 07/29/24 04:36 07/29/24 09:55 Alanine Aminotransferase (ALT) 40 U/L (7-40) 34 U/L (7-40) Alkaline Phosphatase 105 U/L (46-116) 99 U/L (46-116) Aspartate Amino Transferase (AST) 95 U/L (13-40) H 88 U/L (13-40) H Total Bilirubin 1.0 mg/dL (0.2-1.0) 1.2 mg/dL (0.2-1.0) H HgA1c, TSH Test 07/29/24 04:36 Hemoglobin A1c 5.2 % A1C (<5.7) Thyroid Stimulating Hormone (TSH) 2.78 uIU/mL (0.55-4.78) Urinalysis Test 07/29/24 08:10 Urine Color Yellow (Yellow) Urine Clarity Clear (Clear) Urine pH 5.0 (5.0-9.0) Urine Specific [place] 1.020 (1.001-1.035) Urine Protein Trace (Negative) H Urine Ketones Negative (Negative) Urine Blood Trace /uL (Negative) H Urine Nitrite Negative (Negative) Urine Bilirubin Negative (Negative) Urine Urobilinogen Normal mg/dL (Negative) Urine Leukocyte Esterase 3+ /uL (Negative) Urine RBC 5 /hpf (0 - 3) Urine Microscopic WBC 36 /HPF (0-3) H Urine Squamous Epithelial Cells None seen /hpf (<5) Urine Bacteria None seen /hpf (None Seen) Urine Hyaline Casts Few /lpf (0 - 2) Urine Glucose Normal mg/dL (Normal) Labs and/or images reviewed: Labs reviewed by me, Image(s) reviewed by me Assessment/Plan Assessment/Plan Fall Laceration right frontal scalp status post sutured Left-sided pneumothorax, status post chest tube placement Acute hypoxic respiratory failure likely from pneumothorax Left clavicular fracture Polysubstance abuse amphetamine opiates Left 3rd rib fracture in the posterior side Bruise in the bilateral forearms History of COPD, no acute exacerbation Emphysema mild Multilevel degenerative neural foraminal stenosis up to severe bilaterally at C3-C4 and on the right at C4-C5 and C5-C6. Multilevel mild degenerative spinal stenosis. Moderate sized right frontal scalp contusion and a smaller high posterior midline and left parietal scalp contusion near the vertex Mildly displaced fracture of the posterior left 3rd rib Suspected liver cirrhosis Left pleural effusion Bilateral renal mass Time spent 70 minutes Advanced care planning time 20 minutes Patient is full code Plan discussed with: Patient Date of Service: July 29, 2024 Billing Provider: RUFINO WATTS MD Common Visit Codes: [id number] CARE 30-74 MIN RUFINO WATTS MD July 29, 2024 14:37
[2024-07-29] MEDS: OXYCODONE W/ ACETAMINOPHEN 5/325MG TABLET PO PRN (20:12)
[2024-07-29] MEDS: PANTOPRAZOLE 40 MG/10 ML VIAL INJ IV SCH (22:27)
[2024-07-30] VITALS (8 sets, daily range): BP systolic 121–142; BP diastolic 73–99; PULSE 65–117; RESP 16–18; TEMP 97.8–99; O2SAT 98–100
[2024-07-30 06:54] LABS: Basophils # (auto) 0 10 ^3/uL (0-0.2); Basophils % (auto) 0.7 % (0.0-2.0); Eosinophils # (auto) 0.3 10 ^3/uL (0-0.8); Hematocrit 33.7 % (41.0-53.0); Hemoglobin 11.6 g/dL (13.5-17.5); Lymphocytes # (auto) 0.8 10 ^3/uL (0.4-5.4); Lymphocytes % (auto) 16.5 % (10.0-50.0); Mean Corpuscular Hemoglobin 32.8 pg (28.0-32.0); Mean Corpuscular Hgb Conc. 34.4 g/dL (32.0-36.0); Mean Corpuscular Volume 95.4 fL (80.0-100.0); Monocytes # (auto) 0.7 10 ^3/uL (0-1.3); Monocytes % (auto) 14.6 % (0.0-12.0); Neutrophils # (auto) 2.9 10 ^3/uL (1.6-8.6); Neutrophils % (auto) 62.2 % (37.0-80.0); Nucleated Red Blood Cells % 0.1 %; Platelet Count (auto) 147 10^3/uL (140-450); Red Blood Cells 3.53 10^6/uL (4.5-5.90); White Blood Cell 4.7 10^3/uL (4.4-10.8)
[2024-07-30 07:10] LABS: Alanine Aminotransferase 34 U/L (7-40); Alkaline Phosphatase 96 U/L (46-116); Anion Gap 9 (5-15); BUN/Creatinine Ratio 22.5 (10.0-20.0); Blood Urea Nitrogen 29 mg/dL (9-23); Calcium 8.9 mg/dL (8.7-10.4); Carbon Dioxide 22 mmol/L (20-31); Chloride 111 mmol/L (98-107); Glucose 94 mg/dL (74-106); Potassium 4.9 mmol/L (3.5-5.1); Sodium 142 mmol/L (136-145); Total Protein 6.3 g/dL (5.7-8.2)
[2024-07-30 07:11] LABS: Albumin 3.3 g/dL (3.2-4.8)
[2024-07-30 07:12] LABS: Aspartate Aminotransferase 84 U/L (13-40); Bilirubin, Total 1.4 mg/dL (0.2-1.0)
--- NOTE | 2024-07-30 13:26 | DVHPN2 ---
Reviewed: Care Plan, H&P, Labs, Medications, Previous Orders, Radiology Changes from previous H/P or p: No Changes Objective Vitals Vital Signs Date Time Temp Pulse Resp B/P (MAP) Pulse Ox O2 Delivery O2 Flow Rate FiO2 07/30/24 09:00 98.1 97 17 142/80 (100) 98 98.1 07/30/24 08:05 Room Air* 0 21 Intake/Output Intake and Output 07/30/24 07:00 Intake Total 1320 ml Output Total 24 ml Balance 1296 ml Intake Oral 0 ml IV Total 1320 ml Output Chest Tube Drainage Total 24 ml # Voids 2 Medications Current Medications Medications Dose Ordered Sig/Vinicius Route Start Time Stop Time Status Last Admin Dose Admin Sodium Chloride 10 ml Q8HR IV 07/29/24 06:00 07/30/24 06:47 10 ML Sodium Chloride 1,000 ml @ 120 mls/hr Q8H20M IV 07/29/24 05:45 07/30/24 06:47 120 MLS/HR Ondansetron HCl 4 mg Q4HP PRN IV 07/29/24 05:45 Acetaminophen 650 mg Q6HP PRN PO 07/29/24 05:45 Pantoprazole Sodium 40 mg BID IV 07/29/24 22:00 07/30/24 09:37 40 MG Oxycodone/ Acetaminophen 1 tab Q6HP PRN PO 07/29/24 06:15 07/30/24 09:59 1 TAB Albuterol 2.5 mg Q6HPRN PRN NEB 07/29/24 06:30 Ipratropium [place] 0.5 mg Q6HPRN PRN NEB 07/29/24 06:30 Laboratory Results Laboratory Tests 07/30/24 06:07 Chemistry Test 07/30/24 06:07 Albumin 3.3 g/dL (3.2-4.8) Calcium Level 8.9 mg/dL (8.7-10.4) Total Protein 6.3 g/dL (5.7-8.2) LFT Test 07/30/24 06:07 Alanine Aminotransferase (ALT) 34 U/L (7-40) Alkaline Phosphatase 96 U/L (46-116) Aspartate Amino Transferase (AST) 84 U/L (13-40) H Total Bilirubin 1.4 mg/dL (0.2-1.0) H Urinalysis Test 07/29/24 08:10 Urine Color Yellow (Yellow) Urine Clarity Clear (Clear) Urine pH 5.0 (5.0-9.0) Urine Specific [place] 1.020 (1.001-1.035) Urine Protein Trace (Negative) H Urine Ketones Negative (Negative) Urine Blood Trace /uL (Negative) H Urine Nitrite Negative (Negative) Urine Bilirubin Negative (Negative) Urine Urobilinogen Normal mg/dL (Negative) Urine Leukocyte Esterase 3+ /uL (Negative) Urine RBC 5 /hpf (0 - 3) Urine Microscopic WBC 36 /HPF (0-3) H Urine Squamous Epithelial Cells None seen /hpf (<5) Urine Bacteria None seen /hpf (None Seen) Urine Hyaline Casts Few /lpf (0 - 2) Urine Glucose Normal mg/dL (Normal) Labs and/or images reviewed: Labs reviewed by me, Image(s) reviewed by me Assessment/Plan Assessment/Plan Fall Laceration right frontal scalp status post sutured Left-sided pneumothorax, status post chest tube placement consult for Dr. Jerry Acute hypoxic respiratory failure likely from pneumothorax Left clavicular fracture Polysubstance abuse amphetamine opiates Left 3rd rib fracture in the posterior side Bruise in the bilateral forearms History of COPD, no acute exacerbation Emphysema mild Multilevel degenerative neural foraminal stenosis up to severe bilaterally at C3-C4 and on the right at C4-C5 and C5-C6. Multilevel mild degenerative spinal stenosis. Moderate sized right frontal scalp contusion and a smaller high posterior midline and left parietal scalp contusion near the vertex Mildly displaced fracture of the posterior left 3rd rib Suspected liver cirrhosis Left pleural effusion Bilateral renal mass Time spent 70 minutes Advanced care planning time 20 minutes Patient is full code Plan discussed with: Patient Date of Service: July 30, 2024 Billing Provider: RUFINO WATTS MD Common Visit Codes: [id number] CARE 30-74 MIN RUFINO WATTS MD July 30, 2024 13:26
[2024-07-30] MEDS: HYDROmorphone HCL 2 MG/ML VL/or syr IV PRN (14:10)
--- NOTE | 2024-07-30 14:53 | DVH ---
CHEST RADIOGRAPH Indication: Evidence of resolution of pneumothorax Technique: Single frontal view of the chest was obtained Comparison: XY CHEST XRAY 1 VIEW on DOS: 07/29/24, XY CHEST XRAY 1 VIEW on DOS: 07/29/24, XY CHEST XRAY 1 VIEW on DOS: 07/29/24 FINDINGS: Lines and Tubes: Left chest tube in satisfactory position. Lungs: Clear Pleura: No effusion. No pneumothorax. Cardiomediastinal contours: Cardiomegaly Bones: Unremarkable IMPRESSION: No appreciable pneumothorax with left chest tube in-situ.
--- NOTE | 2024-07-30 17:49 | DVHINCON2 ---
Date Seen: July 30, 2024 Referring Physician MD Adam Reason for Consultation Atrial fibrillation History of Present Illness This is a 79-year-old man who presented to the emergency room with a chief complaint of fall injury. Patient reports he fell off a ladder that was about 8 ft high. Presented with multiple injuries including head injury with lacerations and right frontal scalp contusion, right forearm laceration, right orbital hematoma, and aid left pneumothorax. Denies loss of consciousness, chest pain, palpitations, diaphoresis, SOB, dizziness, visual disturbances, or syncopal events. During admission he was noted to be in an atrial fibrillation rhythm. The patient denies a history of cardiac arrhythmias or cardiovascular disease. He underwent a 12 lead electrocardiogram revealing an atrial fibrillation rhythm at a controlled rate with an associated right bundle branch block. States he had not seen a PCP in over 15 years. Significant medical history includes tobacco dependence including 57 pack-years and methamphetamine use. Past Medical History Past medical history reviewed. No other significant than mentioned above. Past Surgical History Inguinal hernia repair x3 Family History: Patient reports no known family medical history. Family History Family history reviewed. Significant with father for CHF and CVA. Social History Denies the use of alcohol. Admits to methamphetamines and tobacco use. Allergies: Coded Allergies: NO KNOWN ALLERGIES (Unverified , 07/29/24) Home Meds Home medications reviewed. Current Medications Current Medications Medications (Trade) Dose Ordered Sig/Vinicius Route PRN Reason Start Time Stop Time Status Last Admin Pantoprazole Sodium (Protonix) 40 mg BID IV 07/29/24 22:00 07/30/24 09:37 Hydromorphone HCl (Dilaudid Injection) 2 mg Q4HPRN PRN IV SEVERE PAIN (7-10 PAIN SCALE) 07/30/24 13:30 07/30/24 14:10 Metoprolol Succinate (Toprol Xl) 25 mg DAILY PO 07/31/24 10:00 UNV Review of Systems Constitutional: No symptom reported Ears, Nose, & Throat: No symptom reported Eyes: No symptom reported Neurological: LINDA Pulmonary/Respiratory: No symptom reported Cardiovascular: No symptom reported Gastrointestinal: No symptom reported Genitourinary: No symptom reported Musculoskeletal: No symptom reported Skin: Lacerations, hematoma, contusion Psychiatric: No symptom reported Endocrine: No symptom reported Hemotologic/Lymphatic: No symptom reported Vital Signs Vital Signs Date Time Temp Pulse Resp B/P (MAP) Pulse Ox O2 Delivery O2 Flow Rate FiO2 07/30/24 14:10 89 17 131/87 07/30/24 13:00 97.8 100 97.8 07/30/24 08:05 Room Air* 0 21 Physical Exam General Appearance: Cooperative. Well developed. Well nourished. In no acute distress Head Exam: Normal inspection Neck Exam: Normal inspection. Non-tender. Normal alignment Pulmonary/Respiratory: Chest tender touch. Left-sided chest tube with sanguineous fluid in chamber Cardiovascular/Chest: Irregular rate and rhythm. AFib controlled rate. No murmurs. No JVD. Peripheral Pulses: 2+ Radial (R). 2+ Radial (L). 2+ Pedal (R). 2+ Pedal (L) Abdominal Exam: Normal bowel sounds. Soft. Nontender. No hepatospenomegaly. No masses Ankle Exam: Negative ankle edema Lower extremities: Negative lower extremity edema Neuro/Mental Status: A&O x4. Coherent Thoughts/Psych: Normal thought pattern. Appropriate mood and affect. Good judgement and insight Appearance: In no acute distress Skin Exam: Contusion to right scalp. Orbital hematoma. Right forearm laceration. Posterior scalp laceration Labs/Diagnostic Data Labs Test 07/30/24 06:07 07/29/24 08:10 07/29/24 04:36 07/29/24 02:31 Range/Units White Blood Count 4.7 4.4-10.8 10^3/uL Red Blood Count 3.53 L 4.5-5.90 10^6/uL Hemoglobin 11.6 L 13.5-17.5 g/dL Hematocrit 33.7 L 41.0-53.0 % Mean Corpuscular Volume 95.4 80.0-100.0 fL Mean Corpuscular Hemoglobin 32.8 H 28.0-32.0 pg Mean Corpuscular Hemoglobin Concent 34.4 32.0-36.0 g/dL Red Cell Distribution Width 14.0 11.8-14.3 % Platelet Count 147 140-450 10^3/uL Mean Platelet Volume 7.5 6.9-10.8 fL Neutrophils (%) (Auto) 62.2 37.0-80.0 % Lymphocytes (%) (Auto) 16.5 10.0-50.0 % Monocytes (%) (Auto) 14.6 H 0.0-12.0 % Eosinophils (%) (Auto) 6.0 0.0-7.0 % Basophils (%) (Auto) 0.7 0.0-2.0 % Neutrophils # (Auto) 2.9 1.6-8.6 10 ^3/uL Lymphocytes # (Auto) 0.8 0.4-5.4 10 ^3/uL Monocytes # (Auto) 0.7 0-1.3 10 ^3/uL Eosinophils # (Auto) 0.3 0-0.8 10 ^3/uL Basophils # (Auto) 0 0-0.2 10 ^3/uL Nucleated Red Blood Cells 0.1 % Sodium Level 142 136-145 mmol/L Potassium Level 4.9 3.5-5.1 mmol/L Chloride Level 111 H 98-107 mmol/L Carbon Dioxide Level 22 20-31 mmol/L Anion Gap 9 5-15 Blood Urea Nitrogen 29 H 9-23 mg/dL Creatinine 1.29 0.700-1.30 mg/dL Glomerular Filtration Rate Calc 57 >90 mL/min BUN/Creatinine Ratio 22.5 H 10.0-20.0 Serum Glucose 94 74-106 mg/dL Calcium Level 8.9 8.7-10.4 mg/dL Total Bilirubin 1.4 H 0.2-1.0 mg/dL Aspartate Amino Transferase (AST) 84 H 13-40 U/L Alanine Aminotransferase (ALT) 34 7-40 U/L Alkaline Phosphatase 96 46-116 U/L Total Protein 6.3 5.7-8.2 g/dL Albumin 3.3 3.2-4.8 g/dL Urine Color Yellow Yellow Urine Clarity Clear Clear Urine pH 5.0 5.0-9.0 Urine Specific [place] 1.020 1.001-1.035 Urine Protein Trace H Negative Urine Ketones Negative Negative Urine Blood Trace H Negative /uL Urine Nitrite Negative Negative Urine Bilirubin Negative Negative Urine Urobilinogen Normal Negative mg/dL Urine Leukocyte Esterase 3+ Negative /uL Urine RBC 5 0 - 3 /hpf Urine Microscopic WBC 36 H 0-3 /HPF Urine Squamous Epithelial Cells None seen <5 /hpf Urine Bacteria None seen None Seen /hpf Urine Hyaline Casts Few 0 - 2 /lpf Urine Glucose Normal Normal mg/dL Urine Opiates Screen Pos NEGATIVE Urine Fentanyl Screen Neg NEGATIVE Urine Barbiturates Screen Neg NEGATIVE Urine Phencyclidine Screen Neg NEGATIVE Urine Amphetamines Screen Pos NEGATIVE Urine Benzodiazepines Screen Neg NEGATIVE Urine Cocaine Screen Neg NEGATIVE Urine Cannabinoids Screen Neg NEGATIVE Hemoglobin A1c 5.2 <5.7 % A1C Vitamin B12 Level 505 211-911 pg/mL Vitamin D 25-Hydroxy 40.5 30.0-100 ng/mL Folic Acid 23.23 >5.38 ng/mL Thyroid Stimulating Hormone (TSH) 2.78 0.55-4.78 uIU/mL Plasma/Serum Blood Alcohol < 3.0 <10 mg/dL Hepatitis B Surface Antibody Negative Negative Hepatitis B Core IgM Antibody Negative Negative Hepatitis C Antibody Positive *A Negative POC Glucose 103 70-106 mg/dl Assessment Atrial fibrillation (Stage III), controlled rate, newly diagnosed Rule out structural heart disease Left-sided pneumothorax Right renal mass Fall injury with head trauma/lacerations/left rib fracture/left clavicular fracture Chronic cirrhosis Emphysema Hypertension Methamphetamine use Nicotine dependence Plan/Recommendation (Dr. Bauman) The patient presents with newly diagnosed atrial fibrillation of unknown onset. Avoid antiarrhythmic therapy. Initiate Metoprolol XL and obtain a transthoracic echocardiogram to evaluate cardiac function. Continue pulmonology recommendations for chest tube management. We will initiate anticoagulation therapy once cleared by pulmonology. Monitor ECG changes closely and notify. TSH WNL. Magnesium level pending. Strongly advise on risk factor modifications including methamphetamine use and tobacco cessation. Initiate nicotine patch. Thank you for allowing us to participate in this patient's care. Please call if you have any questions or concerns. This medical document was created using an electronic medical record system with voice recognition software and computerized dictation system. Although this document has been carefully reviewed, there might still be some phonetic and typographical errors. Occasional wrong-word or ``sound-alike substitutions may have occurred due to the inherent limitations of voice recognition software. These areas are purely typographical due to imperfections of the software programs and do not reflect any compromise in the patient's medical care. Please read the chart carefully and recognize, using context, where these substitutions have occurred. Plan discussed with: Patient, Other NYHA Physical activity limitations: NA Date of Service: July 30, 2024 Billing Provider: ALONSO DIEZ Cardiology Common Codes: [id number] INP/OBS CARE (High) ALONSO DIEZ July 30, 2024 17:49
[2024-07-30 17:51] LABS: Magnesium 1.9 mg/dL (1.6-2.6)
[2024-07-30] MEDS: NICOTINE 14 MG/24HR TOPICAL PATCH TD ONE (18:33)
[2024-07-30] MEDS: METOPROLOL SUCCINATE XL 50 MG TAB PO ONE (18:35)
--- NOTE | 2024-07-30 20:10 | DVHINCON2 ---
Date of service: July 30, [address] Bill Medina Reason for Consultation Pneumothorax History of Present Illness History Source: Patient Exam Limitations: No limitations HPI Patient is a 79-year old gentleman with a history of nicotine dependency, osteoarthritis and COPD who presented after mechanical fall from approximately ladder height. Was seen in the emergency room where chest x-ray demonstrated left pneumothorax and chest tube was subsequently placed. Pulmonology was consul lisa in view of hypoxemia. Past Medical History Cardiac: No pertinent Hx Pulmonary: COPD Central Nervous System: No pertinent Hx GI: No pertinent Hx Hemotology/Oncology: No pertinent Hx Hepatobiliary: No pertinent Hx Psychiatric: No pertinent Hx Musculoskeletal: No pertinent Hx Rheumotologic: No pertinent Hx Infectious Disease: No peritnent Hx ENT: No pertinent Hx Renal/: No pertinent Hx Endocrine: No pertinent Hx Dermatology: No pertinent Hx Past Surgical History: No pertinent Hx Patient Family History: Patient reports no known family medical history. Smoker: Positive Alocohol: None Drugs: None Lives with: With family Domestic Violence: Neg Review of Systems Constitutional: No symptom reported Ears, Nose, & Throat: No symptom reported Eyes: No symptom reported Pulmonary/Respiratory: Dyspnea Cardiovascular: No symptom reported Gastrointestinal: No symptom reported Genitourinary: No symptom reported Musculoskeletal: No symptom reported Skin: No symptom reported Psychiatric: No symptom reported Endocrine: No symptom reported Hemotologic/Lymphatic: No symptom reported H&P Exam Vital Signs Vital Signs Date Time Temp Pulse Resp B/P (MAP) Pulse Ox O2 Delivery O2 Flow Rate FiO2 07/30/24 19:55 Room Air* 0 21 07/30/24 18:35 89 131/87 07/30/24 17:00 98.0 16 98 98.0 General Appeara: Well developed, Well nourished, Normal Appearance Head Exam: Normal inspection Neck Exam: Normal inspection, Non-tender, Normal alignment Eye Exam: bilateral eye Normal inspection, bilateral eye PERRL, bilateral eye EOMI Ear Exam: bilateral ear Auricle normal, bilateral ear Canal normal, bilateral ear TM normal Nasal Exam: Normal inspection Mouth: Normal Inspection Pulmonary/Respiratory: Decreased breath sounds Cardiovascular/Chest: Normal inspection Peripheral Pulses: 4+ Radial (R), 4+ Radial (L), 4+ Brachial (R), 4+ Brachial (L) Abdominal Exam: Normal bowel sounds Labs/Xrays Labs Test 07/30/24 06:07 07/29/24 08:10 07/29/24 04:36 07/29/24 02:31 Range/Units White Blood Count 4.7 4.4-10.8 10^3/uL Red Blood Count 3.53 L 4.5-5.90 10^6/uL Hemoglobin 11.6 L 13.5-17.5 g/dL Hematocrit 33.7 L 41.0-53.0 % Mean Corpuscular Volume 95.4 80.0-100.0 fL Mean Corpuscular Hemoglobin 32.8 H 28.0-32.0 pg Mean Corpuscular Hemoglobin Concent 34.4 32.0-36.0 g/dL Red Cell Distribution Width 14.0 11.8-14.3 % Platelet Count 147 140-450 10^3/uL Mean Platelet Volume 7.5 6.9-10.8 fL Neutrophils (%) (Auto) 62.2 37.0-80.0 % Lymphocytes (%) (Auto) 16.5 10.0-50.0 % Monocytes (%) (Auto) 14.6 H 0.0-12.0 % Eosinophils (%) (Auto) 6.0 0.0-7.0 % Basophils (%) (Auto) 0.7 0.0-2.0 % Neutrophils # (Auto) 2.9 1.6-8.6 10 ^3/uL Lymphocytes # (Auto) 0.8 0.4-5.4 10 ^3/uL Monocytes # (Auto) 0.7 0-1.3 10 ^3/uL Eosinophils # (Auto) 0.3 0-0.8 10 ^3/uL Basophils # (Auto) 0 0-0.2 10 ^3/uL Nucleated Red Blood Cells 0.1 % Sodium Level 142 136-145 mmol/L Potassium Level 4.9 3.5-5.1 mmol/L Chloride Level 111 H 98-107 mmol/L Carbon Dioxide Level 22 20-31 mmol/L Anion Gap 9 5-15 Blood Urea Nitrogen 29 H 9-23 mg/dL Creatinine 1.29 0.700-1.30 mg/dL Glomerular Filtration Rate Calc 57 >90 mL/min BUN/Creatinine Ratio 22.5 H 10.0-20.0 Serum Glucose 94 74-106 mg/dL Calcium Level 8.9 8.7-10.4 mg/dL Magnesium Level 1.9 1.6-2.6 mg/dL Total Bilirubin 1.4 H 0.2-1.0 mg/dL Aspartate Amino Transferase (AST) 84 H 13-40 U/L Alanine Aminotransferase (ALT) 34 7-40 U/L Alkaline Phosphatase 96 46-116 U/L Total Protein 6.3 5.7-8.2 g/dL Albumin 3.3 3.2-4.8 g/dL Triglycerides Level 56 < 150 mg/dL Cholesterol Level 114 < 200 mg/dL LDL Cholesterol 64 < 100 mg/dL HDL Cholesterol 39 L 40-59 mg/dL Urine Color Yellow Yellow Urine Clarity Clear Clear Urine pH 5.0 5.0-9.0 Urine Specific [place] 1.020 1.001-1.035 Urine Protein Trace H Negative Urine Ketones Negative Negative Urine Blood Trace H Negative /uL Urine Nitrite Negative Negative Urine Bilirubin Negative Negative Urine Urobilinogen Normal Negative mg/dL Urine Leukocyte Esterase 3+ Negative /uL Urine RBC 5 0 - 3 /hpf Urine Microscopic WBC 36 H 0-3 /HPF Urine Squamous Epithelial Cells None seen <5 /hpf Urine Bacteria None seen None Seen /hpf Urine Hyaline Casts Few 0 - 2 /lpf Urine Glucose Normal Normal mg/dL Urine Opiates Screen Pos NEGATIVE Urine Fentanyl Screen Neg NEGATIVE Urine Barbiturates Screen Neg NEGATIVE Urine Phencyclidine Screen Neg NEGATIVE Urine Amphetamines Screen Pos NEGATIVE Urine Benzodiazepines Screen Neg NEGATIVE Urine Cocaine Screen Neg NEGATIVE Urine Cannabinoids Screen Neg NEGATIVE Hemoglobin A1c 5.2 <5.7 % A1C Vitamin B12 Level 505 211-911 pg/mL Vitamin D 25-Hydroxy 40.5 30.0-100 ng/mL Folic Acid 23.23 >5.38 ng/mL Thyroid Stimulating Hormone (TSH) 2.78 0.55-4.78 uIU/mL Plasma/Serum Blood Alcohol < 3.0 <10 mg/dL Hepatitis B Surface Antibody Negative Negative Hepatitis B Core IgM Antibody Negative Negative Hepatitis C Antibody Positive *A Negative POC Glucose 103 70-106 mg/dl Assessment/Plan Plan Impression Acute hypoxemic respiratory failure Traumatic left pneumothorax Emphysema Smoker COPD Patient seen and examined Events Low oxygen requirements On 2 liters nasal cannula Vital signs stable Labs and imaging reviewed Chest x-ray shows chest tube in place and completely expanded lung Emphysema Management Supplemental oxygen Titrate to maintain sats 90% or above Incentive spirometry Bronchodilators Monitor renal function Monitor electrolytes Supplement as needed Pain control Avoid oversedation Chest tube to continuous negative suction DVT prophylaxis Plan discussed with: Patient JESS PIKE MD July 30, 2024 20:10
[2024-07-31] VITALS (9 sets, daily range): BP systolic 127–149; BP diastolic 83–99; PULSE 79–106; RESP 16–19; TEMP 98–99.7; O2SAT 96–100
[2024-07-31] MEDS: NICOTINE 14 MG/24HR TOPICAL PATCH TD SCH (09:14)
[2024-07-31] MEDS: METOPROLOL SUCCINATE XL 50 MG TAB PO SCH (09:15)
--- NOTE | 2024-07-31 10:22 | DVHPN2 ---
Consult Progress Note Date Seen: July 31, 2024 Subjective Review of Systems: CVS:Normal, RESPIRATORY:Normal, NEURO:Normal Objective vital signs Vital Sign Date Time Temp Pulse Resp B/P (MAP) Pulse Ox O2 Delivery O2 Flow Rate FiO2 07/31/24 09:15 81 133/76 07/31/24 08:30 98.7 17 99 98.7 07/31/24 08:00 Room Air* 0 21 Total Intake and Output 07/30/24 07/30/24 07/31/24 15:00 23:00 07:00 Intake Total 1350 ml 1340 ml Output Total 450 ml Balance 1350 ml 890 ml medications Current Medications Medications Dose Ordered Sig/Vinicius Route Start Time Stop Time Status Last Admin Dose Admin Sodium Chloride 10 ml Q8HR IV 07/29/24 06:00 07/31/24 05:02 10 ML Sodium Chloride 1,000 ml @ 120 mls/hr Q8H20M IV 07/29/24 05:45 07/31/24 05:01 120 MLS/HR Ondansetron HCl 4 mg Q4HP PRN IV 07/29/24 05:45 Acetaminophen 650 mg Q6HP PRN PO 07/29/24 05:45 Pantoprazole Sodium 40 mg BID IV 07/29/24 22:00 07/31/24 09:15 40 MG Albuterol 2.5 mg Q6HPRN PRN NEB 07/29/24 06:30 Ipratropium [place] 0.5 mg Q6HPRN PRN NEB 07/29/24 06:30 Hydromorphone HCl 2 mg Q4HPRN PRN IV 07/30/24 13:30 07/31/24 05:00 2 MG Metoprolol Succinate 25 mg DAILY PO 07/31/24 10:00 07/31/24 09:15 25 MG Nicotine 1 patch DAILY TD 07/31/24 10:00 Examination: GENERAL:Normal, LUNGS:Abnormal (Left sided chest tube. No overnight drainage), CVS:Normal (A-fib controlled rate), NEURO:Normal laboratory and microbiology Laboratory Tests 07/30/24 06:07 Test 07/30/24 06:07 Range/Units Serum Glucose 94 74-106 mg/dL Problem List/Assessment/Plan Problem List/Assessment/Plan Atrial fibrillation (Stage III), controlled rate, newly diagnosed Rule out structural heart disease Left-sided pneumothorax Right renal mass Fall injury with head trauma/lacerations/left rib fracture/left clavicular fracture Chronic cirrhosis Emphysema Hypertension Methamphetamine use Nicotine dependence Plan/Recommendation (Dr. Bauman) The patient presents with newly diagnosed atrial fibrillation of unknown onset. Avoid antiarrhythmic therapy. Continue Metoprolol XL and obtain a transthoracic echocardiogram to evaluate cardiac function. Continue pulmonology recommendations for chest tube management. We will initiate anticoagulation therapy once cleared by pulmonology ([id number] Score 2 points, HAS-BLED Score 1 point). Monitor ECG changes closely and notify. TSH WNL. Strongly advise on risk factor modifications including methamphetamine use and tobacco cessation. Continue nicotine patch. Thank you for allowing us to participate in this patient's care. Please call if you have any questions or concerns. This medical document was created using an electronic medical record system with voice recognition software and computerized dictation system. Although this document has been carefully reviewed, there might still be some phonetic and typographical errors. Occasional wrong-word or ``sound-alike substitutions may have occurred due to the inherent limitations of voice recognition software. These areas are purely typographical due to imperfections of the software programs and do not reflect any compromise in the patient's medical care. Please read the chart carefully and recognize, using context, where these substitutions have occurred. Plan discussed with: Patient, Other Date of Service: July 31, 2024 Billing Provider: ALONSO DIEZ Cardiology Common Codes: [id number] HOSP CARE(High ALONSO DIEZ July 31, 2024 10:22
--- NOTE | 2024-07-31 11:59 | DVHPN2 ---
Reviewed: Care Plan, H&P, Labs, Medications, Previous Orders, Radiology Changes from previous H/P or p: No Changes Objective Vitals Vital Signs Date Time Temp Pulse Resp B/P (MAP) Pulse Ox O2 Delivery O2 Flow Rate FiO2 07/31/24 09:15 81 133/76 07/31/24 08:30 98.7 17 99 98.7 07/31/24 08:00 Room Air* 0 21 Intake/Output Intake and Output 07/31/24 07:00 Intake Total 2690 ml Output Total 450 ml Balance 2240 ml Intake Oral 1730 ml IV Total 960 ml Output Urine Total 450 ml # Voids 4 Medications Current Medications Medications Dose Ordered Sig/Vinicius Route Start Time Stop Time Status Last Admin Dose Admin Sodium Chloride 10 ml Q8HR IV 07/29/24 06:00 07/31/24 05:02 10 ML Sodium Chloride 1,000 ml @ 120 mls/hr Q8H20M IV 07/29/24 05:45 07/31/24 05:01 120 MLS/HR Ondansetron HCl 4 mg Q4HP PRN IV 07/29/24 05:45 Acetaminophen 650 mg Q6HP PRN PO 07/29/24 05:45 Pantoprazole Sodium 40 mg BID IV 07/29/24 22:00 07/31/24 09:15 40 MG Albuterol 2.5 mg Q6HPRN PRN NEB 07/29/24 06:30 Ipratropium [place] 0.5 mg Q6HPRN PRN NEB 07/29/24 06:30 Hydromorphone HCl 2 mg Q4HPRN PRN IV 07/30/24 13:30 07/31/24 05:00 2 MG Metoprolol Succinate 25 mg DAILY PO 07/31/24 10:00 07/31/24 09:15 25 MG Nicotine 1 patch DAILY TD 07/31/24 10:00 Laboratory Results Laboratory Tests 07/30/24 06:07 Urinalysis Test 07/29/24 08:10 Urine Color Yellow (Yellow) Urine Clarity Clear (Clear) Urine pH 5.0 (5.0-9.0) Urine Specific [place] 1.020 (1.001-1.035) Urine Protein Trace (Negative) H Urine Ketones Negative (Negative) Urine Blood Trace /uL (Negative) H Urine Nitrite Negative (Negative) Urine Bilirubin Negative (Negative) Urine Urobilinogen Normal mg/dL (Negative) Urine Leukocyte Esterase 3+ /uL (Negative) Urine RBC 5 /hpf (0 - 3) Urine Microscopic WBC 36 /HPF (0-3) H Urine Squamous Epithelial Cells None seen /hpf (<5) Urine Bacteria None seen /hpf (None Seen) Urine Hyaline Casts Few /lpf (0 - 2) Urine Glucose Normal mg/dL (Normal) Labs and/or images reviewed: Labs reviewed by me, Image(s) reviewed by me Assessment/Plan Assessment/Plan Fall Laceration right frontal scalp status post sutured Left-sided pneumothorax, status post chest tube placement consult for Dr. Jerry appreciated Acute hypoxic respiratory failure likely from pneumothorax Left clavicular fracture Polysubstance abuse amphetamine opiates Left 3rd rib fracture in the posterior side Bruise in the bilateral forearms AFib new diagnosis, cardiology consult appreciated History of COPD, no acute exacerbation Emphysema Cirrhosis of liver Multilevel degenerative neural foraminal stenosis up to severe bilaterally at C3-C4 and on the right at C4-C5 and C5-C6. Multilevel mild degenerative spinal stenosis. Moderate sized right frontal scalp contusion and a smaller high posterior midline and left parietal scalp contusion near the vertex Mildly displaced fracture of the posterior left 3rd rib Suspected liver cirrhosis Amphetamine abuse Nicotine dependence Left pleural effusion Bilateral renal mass Time spent 50 minutes Advanced care planning time 20 minutes Patient is full code Plan discussed with: Patient My Orders Orders - RUFINO WATTS MD Procedure Category Date Status Time *Consult CONS 07/30/24 Transmitted / 13:26 Chest Xray 1 View XY 07/30/24 Resulted 13:26 Hydromorphone PHA 07/30/24 In Process Injection (Dilaudid 13:30 * Cardiology Consult CONS 07/30/24 Transmitted 16:48 Date of Service: July 31, 2024 Billing Provider: RUFINO WATTS MD Common Visit Codes: [id number] INP/OBS CARE(HIGH) RUFINO WATTS MD July 31, 2024 11:59
--- NOTE | 2024-07-31 18:05 | DVHPN2 ---
Progress Note - Dictate Date Seen: July 31, 2024 Medical Necessity Reason Pt with a Central, PICC or Fol: No vital signs Vital Sign Date Time Temp Pulse Resp B/P (MAP) Pulse Ox O2 Delivery O2 Flow Rate FiO2 07/31/24 16:25 99.7 96 16 127/92 (104) 97 99.7 07/31/24 10:13 Nasal Cannula* 2 28 Total Intake and Output 07/30/24 07/30/24 07/31/24 15:00 23:00 07:00 Intake Total 1350 ml 1340 ml Output Total 450 ml Balance 1350 ml 890 ml medications Current Medications Medications Dose Ordered Sig/Vinicius Route Start Time Stop Time Status Last Admin Dose Admin Sodium Chloride 10 ml Q8HR IV 07/29/24 06:00 07/31/24 15:06 10 ML Sodium Chloride 1,000 ml @ 120 mls/hr Q8H20M IV 07/29/24 05:45 07/31/24 15:06 120 MLS/HR Ondansetron HCl 4 mg Q4HP PRN IV 07/29/24 05:45 Acetaminophen 650 mg Q6HP PRN PO 07/29/24 05:45 Pantoprazole Sodium 40 mg BID IV 07/29/24 22:00 07/31/24 09:15 40 MG Albuterol 2.5 mg Q6HPRN PRN NEB 07/29/24 06:30 Ipratropium [place] 0.5 mg Q6HPRN PRN NEB 07/29/24 06:30 Hydromorphone HCl 2 mg Q4HPRN PRN IV 07/30/24 13:30 07/31/24 15:06 2 MG Metoprolol Succinate 25 mg DAILY PO 07/31/24 10:00 07/31/24 09:15 25 MG Nicotine 1 patch DAILY TD 07/31/24 10:00 laboratory and microbiology Laboratory Tests 07/30/24 06:07 Test 07/30/24 06:07 Range/Units Serum Glucose 94 74-106 mg/dL Assessment/Plan Impression Acute hypoxemic respiratory failure Traumatic left pneumothorax Emphysema Smoker COPD Patient seen and examined Events Low oxygen requirements On 2 liters nasal cannula No acute events Labs and imaging reviewed Management Supplemental oxygen Titrate to maintain sats 90% or above Incentive spirometry Bronchodilators Monitor renal function Monitor electrolytes Supplement as needed Pain control Avoid oversedation Chest tube to continuous negative suction DVT prophylaxis Plan discussed with: Patient JESS PIKE MD July 31, 2024 18:05
--- NOTE | 2024-07-31 19:31 | DVHINCON2 ---
Consult Note Consult Consult Note Orthopedic Inpatient Consultation Note Patient: Garrison Yates Consulting Service: Orthopedic Surgery --- Reason for Consult: Inpatient team requested orthopedic evaluation for possible old left clavicle fracture noted on CT chest following a recent fall from a ladder. --- Subjective: Mr. Garrison Yates was evaluated at the request of the inpatient team after a recent fall. CT chest showed an old left clavicle fracture. The patient denies any current left clavicle or shoulder pain. He reports that the clavicle fracture occurred approximately six months ago following a ground-level fall. He denies any new trauma or changes in pain at the left clavicle region. He has no open wounds, abrasions, or skin lesions on the left shoulder. However, during my evaluation, the patient reported chronic right shoulder pain for the past eight months, unrelated to the recent fall. He denies any new worsening of the right shoulder pain or new trauma. Pain is described as 34/10, consistent with baseline. --- Objective: General: Alert, oriented, cooperative. No acute distress. Left Clavicle / Shoulder Exam: Mild bony prominence over medial end of clavicle, consistent with healed fr acture. No tenderness to palpation No edema, ecchymosis, or open skin lesions Range of Motion: Full, painless Neurovascular exam: Intact distally Right Shoulder Exam: Forward flexion: ~150 Abduction: ~120, pain noted at 100 Positive Taz test Positive Fuentes-Neer test Mildly positive OBriens test Tenderness to palpation over lateral shoulder (deltoid region) No gross deformity, no skin changes Neurovascular exam: Intact distally Imaging Review: CT Chest reviewed: Left clavicle shows signs of healed old fracture, no acute findings. Right shoulder visible on chest xray: mild High-riding humeral head, mild glenohumeral osteoarthritis, small osteophyte formation --- Assessment: 1. Healed Left Clavicle Fracture No current symptoms No intervention required No signs of re-injury from recent fall 2. Right Shoulder Chronic Pain likely Subacromial Impingement with possible Rotator Cuff Tear and GH OA History of pain >8 months No acute injury from recent fall Positive clinical exam findings (Taz, Neer, Fuentes) Imaging suggests chronic changes (elevated humeral head, osteophytes) --- Plan: No further treatment required for left clavicle. Patient reassured. Right shoulder: Chronic pain without acute change. Advised outpatient follow-up in orthopedic clinic post-discharge. Consider further work-up at that time (X-ray, MRI, PT vs. CSI vs. ortho surgical consult) Discussed findings and plan with the patient. All questions answered. Patient agrees with the plan. Plan discussed with: Patient, Other (bedside nurse) Visit Coding Surgery Date of Service if different f: July 31, 2024 Billing Provider: AZALEA ALDRICH Surgery Visit Codes: [id number] - INP CONSULT <40 MIN AZALEA ALDRICH July 31, 2024 19:31
--- NOTE | 2024-07-31 19:50 | DVH ---
EXAM: XY L CLAVICLE COMPLETE XRAY INDICATION: ORTHO CONSULT TECHNIQUE: 2 views of the left clavicle COMPARISON: None FINDINGS/IMPRESSION: Deformity likely compatible with age-indeterminate fracture of the left distal clavicle. Widening of the left acromioclavicular joint. Severe degenerative change of the left glenohumeral joint. Left-s ided pigtail pleural drainage catheter with possible trace residual left apical pneumothorax.
[2024-08-01] VITALS (11 sets, daily range): BP systolic 117–146; BP diastolic 82–100; PULSE 69–98; RESP 17–19; TEMP 96.5–98.7; O2SAT 94–100
--- NOTE | 2024-08-01 07:58 | ECG ---
[facility] Test Date: 2024-07-29 Test Time: 20:22:08 Pat Name: NGOZI BARRIOS Department: Room: 0295T A Gender: M Medical Biller: DENY : 1945 Requested By: RUFINO WATTS Order Number: [id number] Reading MD: Linden Bauman Measurements Intervals [place] Rate: 85 P: 0 VT: 0 QRS: -6 QRSD: 153 T: 6 QT: 398 QTc: 474 Interpretive Statements Atrial fibrillation Right bundle branch block Electronically Signed On 08-04-2024 22:45:54 PDT by Linden Bauman Please click the below link to view image of tracing.
--- NOTE | 2024-08-01 11:32 | DVHPN2 ---
Consult Progress Note Subjective Other Systems: Patient denies any cardiac symptoms at time of assessment. 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 Objective vital signs Vital Sign Date Time Temp Pulse Resp B/P (MAP) Pulse Ox O2 Delivery O2 Flow Rate FiO2 08/01/24 09:50 72 141/94 08/01/24 09:00 96.5 19 99 96.5 08/01/24 07:18 2.0 08/01/24 06:58 Nasal Cannula* 28 Total Intake and Output 07/31/24 07/31/24 08/01/24 15:00 23:00 07:00 Intake Total 354 ml 550 ml 350 ml Output Total 3 ml 645 ml 350 ml Balance 351 ml -95 ml 0 ml medications Current Medications Medications Dose Ordered Sig/Vinicius Route Start Time Stop Time Status Last Admin Dose Admin Sodium Chloride 10 ml Q8HR IV 07/29/24 06:00 08/01/24 06:14 10 ML Sodium Chloride 1,000 ml @ 120 mls/hr Q8H20M IV 07/29/24 05:45 08/01/24 10:02 120 MLS/HR Ondansetron HCl 4 mg Q4HP PRN IV 07/29/24 05:45 Acetaminophen 650 mg Q6HP PRN PO 07/29/24 05:45 Pantoprazole Sodium 40 mg BID IV 07/29/24 22:00 08/01/24 09:48 40 MG Albuterol 2.5 mg Q6HPRN PRN NEB 07/29/24 06:30 Ipratropium [place] 0.5 mg Q6HPRN PRN NEB 07/29/24 06:30 Hydromorphone HCl 2 mg Q4HPRN PRN IV 07/30/24 13:30 08/01/24 06:14 2 MG Metoprolol Succinate 25 mg DAILY PO 07/31/24 10:00 08/01/24 09:50 25 MG Nicotine 1 patch DAILY TD 07/31/24 10:00 08/01/24 09:51 1 PATCH Examination: GENERAL:Normal, LUNGS:Abnormal (Left-sided chest tube in place), CVS:Normal (Atrial fibrillation with controlled rate), NEURO:Normal laboratory and microbiology Laboratory Tests 07/30/24 06:07 Test 07/30/24 06:07 Range/Units Serum Glucose 94 74-106 mg/dL Problem List/Assessment/Plan Problem List/Assessment/Plan Atrial fibrillation (Stage III), controlled rate, newly diagnosed Rule out structural heart disease Left-sided pneumothorax Right renal mass Fall injury with head trauma/lacerations/left rib fracture/left clavicular fracture Chronic cirrhosis Emphysema Hypertension Methamphetamine use Nicotine dependence Plan/Recommendation (Dr. Bauman) The patient presents with newly diagnosed atrial fibrillation of unknown onset. Avoid antiarrhythmic therapy. Continue Metoprolol XL and obtain a transthoracic echocardiogram to evaluate cardiac function. Continue pulmonology recommendations for chest tube management. We will initiate anticoagulation therapy once cleared by pulmonology ([id number] Score 2 points, HAS-BLED Score 1 point). Monitor ECG changes closely and notify. Strongly advise on risk factor modifications including methamphetamine use and tobacco cessation. Continue nicotine patch. Thank you for allowing us to participate in this patient's care. Please call if you have any questions or concerns. This medical document was created using an electronic medical record system with voice recognition software and computerized dictation system. Although this document has been carefully reviewed, there might still be some phonetic and typographical errors. Occasional wrong-word or ``sound-alike substitutions may have occurred due to the inherent limitations of voice recognition software. These areas are purely typographical due to imperfections of the software programs and do not reflect any compromise in the patient's medical care. Please read the chart carefully and recognize, using context, where these substitutions have occurred. Plan discussed with: Patient Date of Service: August 01, 2024 Billing Provider: RUPERT MURRIETA Common Visit Codes: [id number] INP/OBS CARE(HIGH) RUPERT MURRIETA August 01, 2024 11:32
--- NOTE | 2024-08-01 12:47 | DVHPN2 ---
Progress Note - Dictate Date Seen: August 01, 2024 Medical Necessity Reason Pt with a Central, PICC or Fol: No vital signs Vital Sign Date Time Temp Pulse Resp B/P (MAP) Pulse Ox O2 Delivery O2 Flow Rate FiO2 08/01/24 12:17 72 19 136/100 08/01/24 09:00 96.5 99 96.5 08/01/24 07:18 2.0 08/01/24 06:58 Nasal Cannula* 28 Total Intake and Output 07/31/24 07/31/24 08/01/24 15:00 23:00 07:00 Intake Total 354 ml 550 ml 350 ml Output Total 3 ml 645 ml 350 ml Balance 351 ml -95 ml 0 ml medications Current Medications Medications Dose Ordered Sig/Vinicius Route Start Time Stop Time Status Last Admin Dose Admin Sodium Chloride 10 ml Q8HR IV 07/29/24 06:00 08/01/24 06:14 10 ML Sodium Chloride 1,000 ml @ 120 mls/hr Q8H20M IV 07/29/24 05:45 08/01/24 10:02 120 MLS/HR Ondansetron HCl 4 mg Q4HP PRN IV 07/29/24 05:45 Acetaminophen 650 mg Q6HP PRN PO 07/29/24 05:45 Pantoprazole Sodium 40 mg BID IV 07/29/24 22:00 08/01/24 09:48 40 MG Albuterol 2.5 mg Q6HPRN PRN NEB 07/29/24 06:30 Ipratropium [place] 0.5 mg Q6HPRN PRN NEB 07/29/24 06:30 Hydromorphone HCl 2 mg Q4HPRN PRN IV 07/30/24 13:30 08/01/24 12:17 2 MG Metoprolol Succinate 25 mg DAILY PO 07/31/24 10:00 08/01/24 09:50 25 MG Nicotine 1 patch DAILY TD 07/31/24 10:00 08/01/24 09:51 1 PATCH laboratory and microbiology Laboratory Tests 07/30/24 06:07 Test 07/30/24 06:07 Range/Units Serum Glucose 94 74-106 mg/dL Assessment/Plan Impression Acute hypoxemic respiratory failure Traumatic left pneumothorax Emphysema Smoker COPD Patient seen and examined Events Low oxygen requirements On 2 liters nasal cannula No acute events Labs and imaging reviewed Management Supplemental oxygen Titrate to maintain sats 90% or above Incentive spirometry Bronchodilators Monitor renal function Monitor electrolytes Supplement as needed Pain control Avoid oversedation Chest tube management water seal DVT prophylaxis Plan discussed with: Other (rn) JESS PIKE MD August 01, 2024 12:47
--- NOTE | 2024-08-01 13:10 | DVHPN2 ---
Reviewed: Care Plan, H&P, Labs, Medications, Previous Orders, Radiology Changes from previous H/P or p: No Changes Objective Vitals Vital Signs Date Time Temp Pulse Resp B/P (MAP) Pulse Ox O2 Delivery O2 Flow Rate FiO2 08/01/24 12:17 72 19 136/100 08/01/24 09:00 96.5 99 96.5 08/01/24 08:00 Room Air* 0 21 Intake/Output Intake and Output 08/01/24 07:00 Intake Total 1254 ml Output Total 998 ml Balance 256 ml Intake Oral 1254 ml Output Urine Total 730 ml Chest Tube Drainage Total 268 ml # Bowel Movements 1 Medications Current Medications Medications Dose Ordered Sig/Vinicius Route Start Time Stop Time Status Last Admin Dose Admin Sodium Chloride 10 ml Q8HR IV 07/29/24 06:00 08/01/24 06:14 10 ML Sodium Chloride 1,000 ml @ 120 mls/hr Q8H20M IV 07/29/24 05:45 08/01/24 10:02 120 MLS/HR Ondansetron HCl 4 mg Q4HP PRN IV 07/29/24 05:45 Acetaminophen 650 mg Q6HP PRN PO 07/29/24 05:45 Pantoprazole Sodium 40 mg BID IV 07/29/24 22:00 08/01/24 09:48 40 MG Albuterol 2.5 mg Q6HPRN PRN NEB 07/29/24 06:30 Ipratropium [place] 0.5 mg Q6HPRN PRN NEB 07/29/24 06:30 Hydromorphone HCl 2 mg Q4HPRN PRN IV 07/30/24 13:30 08/01/24 12:17 2 MG Metoprolol Succinate 25 mg DAILY PO 07/31/24 10:00 08/01/24 09:50 25 MG Nicotine 1 patch DAILY TD 07/31/24 10:00 08/01/24 09:51 1 PATCH Laboratory Results Laboratory Tests 07/30/24 06:07 Urinalysis Test 07/29/24 08:10 Urine Color Yellow (Yellow) Urine Clarity Clear (Clear) Urine pH 5.0 (5.0-9.0) Urine Specific [place] 1.020 (1.001-1.035) Urine Protein Trace (Negative) H Urine Ketones Negative (Negative) Urine Blood Trace /uL (Negative) H Urine Nitrite Negative (Negative) Urine Bilirubin Negative (Negative) Urine Urobilinogen Normal mg/dL (Negative) Urine Leukocyte Esterase 3+ /uL (Negative) Urine RBC 5 /hpf (0 - 3) Urine Microscopic WBC 36 /HPF (0-3) H Urine Squamous Epithelial Cells None seen /hpf (<5) Urine Bacteria None seen /hpf (None Seen) Urine Hyaline Casts Few /lpf (0 - 2) Urine Glucose Normal mg/dL (Normal) Labs and/or images reviewed: Labs reviewed by me, Image(s) reviewed by me Assessment/Plan Assessment/Plan Laceration right frontal scalp status post sutured Mechanical fall Left-sided pneumothorax, status post chest tube placement consult for Dr. Jerry appreciated Acute hypoxic respiratory failure likely from pneumothorax Left clavicular fracture Polysubstance abuse amphetamine opiates Left 3rd rib fracture in the posterior side Left Clavicle fracture ortho consult appreciated Bruise in the bilateral forearms AFib new diagnosis, cardiology consult appreciated History of COPD, no acute exacerbation Emphysema Cirrhosis of liver Multilevel degenerative neural foraminal stenosis up to severe bilaterally at C3-C4 and on the right at C4-C5 and C5-C6. Multilevel mild degenerative spinal stenosis. Moderate sized right frontal scalp contusion and a smaller high posterior midline and left parietal scalp contusion near the vertex Mildly displaced fracture of the posterior left 3rd rib Suspected liver cirrhosis Amphetamine abuse Nicotine dependence Left pleural effusion Bilateral renal mass Time spent 50 minutes Advanced care planning time 20 minutes Patient is full code Plan discussed with: Patient Date of Service: August 01, 2024 Billing Provider: RUFINO WATTS MD Common Visit Codes: [id number] INP/OBS CARE(HIGH) RUFINO WATTS MD August 01, 2024 13:10
[2024-08-02] VITALS (10 sets, daily range): BP systolic 112–148; BP diastolic 69–92; PULSE 80–97; RESP 14–18; TEMP 97.5–98.8; O2SAT 96–100
--- NOTE | 2024-08-02 09:44 | DVH ---
INDICATION: sob TECHNIQUE: Single frontal view of the chest was obtained COMPARISON: XY CHEST XRAY 1 VIEW on DOS: 07/30/24, XY CHEST XRAY 1 VIEW on DOS: 07/29/24, XY CHEST XRAY 1 VIEW on DOS: 07/29/24, XY CHEST XRAY 1 VIEW on DOS: 07/30/24 FINDINGS: Lines and Tubes: Left chest tube in satisfactory position. Lungs: Clear Pleura: No effusion. No pneumothorax. Cardiomediastinal contours: Cardiomegaly Bones: Unremarkable IMPRESSION: No appreciable pneumothorax with left chest tube in-situ.
[2024-08-02] MEDS: hydrALAZINE HCL 20 MG/ML VL IV ONE (10:30)
[2024-08-02] MEDS: hydrALAZINE HCL 20 MG/ML VL ONE (10:31)
--- NOTE | 2024-08-02 11:39 | DVHPN2 ---
Consult Progress Note Subjective Other Systems: Patient in atrial fibrillation with controlled rate on lunchroom monitor Denies any cardiac symptoms Objective vital signs Vital Sign Date Time Temp Pulse Resp B/P (MAP) Pulse Ox O2 Delivery O2 Flow Rate FiO2 08/02/24 10:31 139/92 08/02/24 10:20 82 08/02/24 09:00 97.9 16 100 97.9 08/01/24 21:48 Nasal Cannula* 2 28 Total Intake and Output 08/01/24 08/01/24 08/02/24 15:00 23:00 07:00 Intake Total 1000 ml 900 ml 650 ml Output Total 600 ml 500 ml Balance 400 ml 400 ml 650 ml medications Current Medications Medications Dose Ordered Sig/Vinicius Route Start Time Stop Time Status Last Admin Dose Admin Sodium Chloride 10 ml Q8HR IV 07/29/24 06:00 08/02/24 05:05 10 ML Sodium Chloride 1,000 ml @ 120 mls/hr Q8H20M IV 07/29/24 05:45 08/02/24 10:32 120 MLS/HR Ondansetron HCl 4 mg Q4HP PRN IV 07/29/24 05:45 Acetaminophen 650 mg Q6HP PRN PO 07/29/24 05:45 Pantoprazole Sodium 40 mg BID IV 07/29/24 22:00 08/02/24 10:19 40 MG Albuterol 2.5 mg Q6HPRN PRN NEB 07/29/24 06:30 Ipratropium [place] 0.5 mg Q6HPRN PRN NEB 07/29/24 06:30 Hydromorphone HCl 2 mg Q4HPRN PRN IV 07/30/24 13:30 08/01/24 22:54 2 MG Metoprolol Succinate 25 mg DAILY PO 07/31/24 10:00 08/02/24 10:20 25 MG Nicotine 1 patch DAILY TD 07/31/24 10:00 08/02/24 10:21 1 PATCH Examination: GENERAL:Normal, LUNGS:Abnormal (left sided chest tube in place. ), CVS:Normal, NEURO:Normal laboratory and microbiology Laboratory Tests 07/30/24 06:07 Test 07/30/24 06:07 Range/Units Serum Glucose 94 74-106 mg/dL Problem List/Assessment/Plan Problem List/Assessment/Plan Atrial fibrillation (Stage III), controlled rate, newly diagnosed Rule out structural heart disease Left-sided pneumothorax Right renal mass Fall injury with head trauma/lacerations/left rib fracture/left clavicular fracture Chronic cirrhosis Emphysema Hypertension Methamphetamine use Nicotine dependence Plan/Recommendation (Dr. Bauman) The patient presents with newly diagnosed atrial fibrillation of unknown onset. Avoid antiarrhythmic therapy. Continue Metoprolol XL and obtain a transthoracic echocardiogram to evaluate cardiac function. Continue pulmonology recommendations for chest tube management. We will initiate anticoagulation therapy once cleared by pulmonology ([id number] Score 2 points, HAS-BLED Score 1 point). Monitor ECG changes closely and notify. Strongly advise on risk factor modifications including methamphetamine use and tobacco cessation. Continue nicotine patch. Thank you for allowing us to participate in this patient's care. Please call if you have any questions or concerns. This medical document was created using an electronic medical record system with voice recognition software and computerized dictation system. Although this document has been carefully reviewed, there might still be some phonetic and typographical errors. Occasional wrong-word or ``sound-alike substitutions may have occurred due to the inherent limitations of voice recognition software. These areas are purely typographical due to imperfections of the software programs and do not reflect any compromise in the patient's medical care. Please read the chart carefully and recognize, using context, where these substitutions have occurred. Plan discussed with: Patient Date of Service: August 02, 2024 Billing Provider: RUPERT MURRIETA Common Visit Codes: [id number] INP/OBS CARE(HIGH) RUPERT MURRIETA August 02, 2024 11:39
--- NOTE | 2024-08-02 11:45 | DVHPN2 ---
Reviewed: Care Plan, H&P, Labs, Medications, Previous Orders, Radiology Changes from previous H/P or p: No Changes Objective Vitals Vital Signs Date Time Temp Pulse Resp B/P (MAP) Pulse Ox O2 Delivery O2 Flow Rate FiO2 08/02/24 10:31 139/92 08/02/24 10:20 82 08/02/24 09:00 97.9 16 100 97.9 08/01/24 21:48 Nasal Cannula* 2 28 Intake/Output Intake and Output 08/02/24 07:00 Intake Total 2550 ml Output Total 1100 ml Balance 1450 ml Intake Oral 2550 ml Output Urine Total 1000 ml Chest Tube Drainage Total 100 ml # Voids 3 Medications Current Medications Medications Dose Ordered Sig/Vinicius Route Start Time Stop Time Status Last Admin Dose Admin Sodium Chloride 10 ml Q8HR IV 07/29/24 06:00 08/02/24 05:05 10 ML Sodium Chloride 1,000 ml @ 120 mls/hr Q8H20M IV 07/29/24 05:45 08/02/24 10:32 120 MLS/HR Ondansetron HCl 4 mg Q4HP PRN IV 07/29/24 05:45 Acetaminophen 650 mg Q6HP PRN PO 07/29/24 05:45 Pantoprazole Sodium 40 mg BID IV 07/29/24 22:00 08/02/24 10:19 40 MG Albuterol 2.5 mg Q6HPRN PRN NEB 07/29/24 06:30 Ipratropium [place] 0.5 mg Q6HPRN PRN NEB 07/29/24 06:30 Hydromorphone HCl 2 mg Q4HPRN PRN IV 07/30/24 13:30 08/01/24 22:54 2 MG Metoprolol Succinate 25 mg DAILY PO 07/31/24 10:00 08/02/24 10:20 25 MG Nicotine 1 patch DAILY TD 07/31/24 10:00 08/02/24 10:21 1 PATCH Laboratory Results Laboratory Tests 07/30/24 06:07 Urinalysis Test 07/29/24 08:10 Urine Color Yellow (Yellow) Urine Clarity Clear (Clear) Urine pH 5.0 (5.0-9.0) Urine Specific [place] 1.020 (1.001-1.035) Urine Protein Trace (Negative) H Urine Ketones Negative (Negative) Urine Blood Trace /uL (Negative) H Urine Nitrite Negative (Negative) Urine Bilirubin Negative (Negative) Urine Urobilinogen Normal mg/dL (Negative) Urine Leukocyte Esterase 3+ /uL (Negative) Urine RBC 5 /hpf (0 - 3) Urine Microscopic WBC 36 /HPF (0-3) H Urine Squamous Epithelial Cells None seen /hpf (<5) Urine Bacteria None seen /hpf (None Seen) Urine Hyaline Casts Few /lpf (0 - 2) Urine Glucose Normal mg/dL (Normal) Labs and/or images reviewed: Labs reviewed by me, Image(s) reviewed by me Assessment/Plan Assessment/Plan Laceration right frontal scalp status post sutured Mechanical fall Left-sided pneumothorax, status post chest tube placement consult for Dr. Jerry appreciated Acute hypoxic respiratory failure likely from pneumothorax Left clavicular fracture Polysubstance abuse amphetamine opiates Left 3rd rib fracture in the posterior side Left Clavicle fracture ortho consult appreciated Bruise in the bilateral forearms AFib new diagnosis, cardiology consult appreciated History of COPD, no acute exacerbation Emphysema Cirrhosis of liver Multilevel degenerative neural foraminal stenosis up to severe bilaterally at C3-C4 and on the right at C4-C5 and C5-C6. Multilevel mild degenerative spinal stenosis. Moderate sized right frontal scalp contusion and a smaller high posterior midline and left parietal scalp contusion near the vertex Mildly displaced fracture of the posterior left 3rd rib Suspected liver cirrhosis Amphetamine abuse Nicotine dependence Left pleural effusion Bilateral renal mass Chest x-ray 08/02/2024 shows no pneumothorax Awaiting Removal of chest tube by Dr. Jerry Plan discussed with: Patient My Orders Orders - RUFINO WATTS MD Procedure Category Date Status Time Cover Wound With Foam VANESSA 08/01/24 In Process Dressing 18:51 Date of Service: August 02, 2024 Billing Provider: RUFINO WATTS MD Common Visit Codes: [id number] INP/OBS CARE(HIGH) RUFINO WATTS MD August 02, 2024 11:45
--- NOTE | 2024-08-02 15:03 | DVHPN2 ---
Progress Note - Dictate Date Seen: August 02, 2024 Medical Necessity Reason Pt with a Central, PICC or Fol: No vital signs Vital Sign Date Time Temp Pulse Resp B/P (MAP) Pulse Ox O2 Delivery O2 Flow Rate FiO2 08/02/24 13:00 98.1 94 14 119/69 (86) 96 98.1 08/01/24 21:48 Nasal Cannula* 2 28 Total Intake and Output 08/01/24 08/01/24 08/02/24 13:00 21:00 05:00 Intake Total 1000 ml 900 ml 650 ml Output Total 600 ml 400 ml 100 ml Balance 400 ml 500 ml 550 ml medications Current Medications Medications Dose Ordered Sig/Vinicius Route Start Time Stop Time Status Last Admin Dose Admin Sodium Chloride 10 ml Q8HR IV 07/29/24 06:00 08/02/24 14:00 10 ML Sodium Chloride 1,000 ml @ 120 mls/hr Q8H20M IV 07/29/24 05:45 08/02/24 10:32 120 MLS/HR Ondansetron HCl 4 mg Q4HP PRN IV 07/29/24 05:45 Acetaminophen 650 mg Q6HP PRN PO 07/29/24 05:45 Pantoprazole Sodium 40 mg BID IV 07/29/24 22:00 08/02/24 10:19 40 MG Albuterol 2.5 mg Q6HPRN PRN NEB 07/29/24 06:30 Ipratropium [place] 0.5 mg Q6HPRN PRN NEB 07/29/24 06:30 Hydromorphone HCl 2 mg Q4HPRN PRN IV 07/30/24 13:30 08/02/24 11:55 2 MG Metoprolol Succinate 25 mg DAILY PO 07/31/24 10:00 08/02/24 10:20 25 MG Nicotine 1 patch DAILY TD 07/31/24 10:00 08/02/24 10:21 1 PATCH laboratory and microbiology Laboratory Tests 07/30/24 06:07 Test 07/30/24 06:07 Range/Units Serum Glucose 94 74-106 mg/dL Assessment/Plan Impression Acute hypoxemic respiratory failure Traumatic left pneumothorax Emphysema Smoker COPD Patient seen and examined Events Low oxygen requirements On 2 liters nasal cannula No distress Labs and imaging reviewed Management Supplemental oxygen Titrate to maintain sats 90% or above Incentive spirometry Bronchodilators Monitor renal function Monitor electrolytes Supplement as needed Pain control Avoid oversedation Chest tube management water seal DVT prophylaxis Plan discussed with: Patient JESS PIKE MD August 02, 2024 15:03
--- NOTE | 2024-08-02 16:11 | DVHSR ---
APPROVED REPORT EXAM: Two-dimensional and M-mode echocardiogram with Doppler and color Doppler. Blood Pressure: 131/87 mmHg INDICATION New onset Afib RISK FACTORS Height: 6'1", Weight: 177 DIMENSIONS LVDd4.7 (3.8-5.7cm)LA (2D)5.2 (1.9-4.0cm)Aortic Root4.0 (2.0-3.7cm) LVDs3.2 (2.5-4.0cm)LA (MM) (1.9-4.0cm)Aortic Cusp Exc1.7 (1.5-2.0cm) EF (%) 60.0 (55-70%)Rt. Atrium (1.9-4.0cm)Asc. Aorta cm IVSd1.3 (0.7-1.1cm)RV (D) (1.8-2.4cm) PWd1.0 (0.7-1.1cm) Mitral Valve MitralMitral Stenosis E/A ratio0.02D MVAcm2 Aortic Valve Aortic ValveAortic Stenosis LVOT Diameter2.1 (1.8-2.4cm)Doppler AVAcm2 2D AVA3.32cm2 Pulmonic Valve V21.17m/s Tricuspid Valve TR Velocity3.03m/s [id number] Other Information Quality : Technically LimitedRhythm : Technically limited study due to patient has left sided chest tube preventing apical views. Conclusion Undetermined rhythm. Biatrial enlargement. Aortic root enlargement. Moderate mitral annular calcification. There is calcification of the posterior mitral leaflet and th e papillary muscle as well as the leaflet tip. There is no significant mitral stenosis. Mild aortic sclerosis. Tricuspid and pulmonic or structurally normal. Left ventricular function is diminished. EF is about 40% with global hypokinesis. There is moderate mitral insufficiency. Moderate tricuspid regurgitation. Mild pulmonic insufficien cy No pericardial effusion masses or vegetations.
[2024-08-03] VITALS (7 sets, daily range): BP systolic 135–160; BP diastolic 86–105; PULSE 69–100; RESP 17–18; TEMP 97.8–99; O2SAT 99–100
[2024-08-03 04:53] LABS: Basophils # (auto) 0 10 ^3/uL (0-0.2); Basophils % (auto) 0.4 % (0.0-2.0); Eosinophils # (auto) 0.3 10 ^3/uL (0-0.8); Eosinophils % (auto) 5.1 % (0.0-7.0); Hematocrit 35.5 % (41.0-53.0); Hemoglobin 12.2 g/dL (13.5-17.5); Lymphocytes # (auto) 0.8 10 ^3/uL (0.4-5.4); Lymphocytes % (auto) 13.4 % (10.0-50.0); Mean Corpuscular Hemoglobin 32.3 pg (28.0-32.0); Mean Corpuscular Hgb Conc. 34.3 g/dL (32.0-36.0); Mean Corpuscular Volume 94.3 fL (80.0-100.0); Monocytes # (auto) 0.9 10 ^3/uL (0-1.3); Monocytes % (auto) 15.1 % (0.0-12.0); Neutrophils # (auto) 3.8 10 ^3/uL (1.6-8.6); Platelet Count (auto) 188 10^3/uL (140-450); Red Blood Cells 3.77 10^6/uL (4.5-5.90); Red Cell Distribution Width 14.4 % (11.8-14.3); White Blood Cell 5.8 10^3/uL (4.4-10.8)
[2024-08-03 05:11] LABS: Alanine Aminotransferase 26 U/L (7-40); Albumin 3.3 g/dL (3.2-4.8); Alkaline Phosphatase 101 U/L (46-116); Anion Gap 6 (5-15); BUN/Creatinine Ratio 20.2 (10.0-20.0); Blood Urea Nitrogen 17 mg/dL (9-23); Calcium 8.9 mg/dL (8.7-10.4); Carbon Dioxide 24 mmol/L (20-31); Glucose 93 mg/dL (74-106); Potassium 4.3 mmol/L (3.5-5.1); Sodium 140 mmol/L (136-145); Total Protein 6.5 g/dL (5.7-8.2)
[2024-08-03 05:13] LABS: Aspartate Aminotransferase 49 U/L (13-40); Bilirubin, Total 1.3 mg/dL (0.2-1.0); Chloride 110 mmol/L (98-107)
--- NOTE | 2024-08-03 10:51 | DVHPN2 ---
Progress Note - Dictate Date Seen: August 03, 2024 Medical Necessity Reason Pt with a Central, PICC or Fol: No vital signs Vital Sign Date Time Temp Pulse Resp B/P (MAP) Pulse Ox O2 Delivery O2 Flow Rate FiO2 08/03/24 09:10 100 153/104 08/03/24 09:00 97.8 17 99 97.8 08/03/24 06:05 Room Air* 0 21 Total Intake and Output 08/02/24 08/02/24 08/03/24 14:59 22:59 06:59 Intake Total 1580 ml 1100 ml Output Total 1100 ml 825 ml Balance 480 ml 275 ml medications Current Medications Medications Dose Ordered Sig/Vinicius Route Start Time Stop Time Status Last Admin Dose Admin Sodium Chloride 10 ml Q8HR IV 07/29/24 06:00 08/03/24 05:21 10 ML Sodium Chloride 1,000 ml @ 120 mls/hr Q8H20M IV 07/29/24 05:45 08/03/24 06:36 120 MLS/HR Ondansetron HCl 4 mg Q4HP PRN IV 07/29/24 05:45 Acetaminophen 650 mg Q6HP PRN PO 07/29/24 05:45 Pantoprazole Sodium 40 mg BID IV 07/29/24 22:00 08/03/24 09:11 40 MG Albuterol 2.5 mg Q6HPRN PRN NEB 07/29/24 06:30 Ipratropium [place] 0.5 mg Q6HPRN PRN NEB 07/29/24 06:30 Hydromorphone HCl 2 mg Q4HPRN PRN IV 07/30/24 13:30 08/03/24 05:23 2 MG Metoprolol Succinate 25 mg DAILY PO 07/31/24 10:00 08/03/24 09:10 25 MG Nicotine 1 patch DAILY TD 07/31/24 10:00 08/03/24 09:12 1 PATCH laboratory and microbiology Laboratory Tests 08/03/24 04:42 Test 08/03/24 04:42 Range/Units Serum Glucose 93 74-106 mg/dL Assessment/Plan Impression Acute hypoxemic respiratory failure Traumatic left pneumothorax Emphysema Smoker COPD Patient seen and examined Events Low oxygen requirements On 2 liters nasal cannula No distress Labs and imaging reviewed Management Supplemental oxygen Titrate to maintain sats 90% or above Incentive spirometry Bronchodilators Monitor renal function Monitor electrolytes Supplement as needed Pain control Avoid oversedation Chest tube management water seal DVT prophylaxis Plan discussed with: Patient, Other JESS PIKE MD August 03, 2024 10:51
--- NOTE | 2024-08-03 10:56 | DVHPN2 ---
Reviewed: Care Plan, H&P, Labs, Medications, Previous Orders, Radiology Changes from previous H/P or p: No Changes Objective Vitals Vital Signs Date Time Temp Pulse Resp B/P (MAP) Pulse Ox O2 Delivery O2 Flow Rate FiO2 08/03/24 09:10 100 153/104 08/03/24 09:00 97.8 17 99 97.8 08/03/24 06:05 Room Air* 0 21 Intake/Output Intake and Output 08/03/24 07:00 Intake Total 2680 ml Output Total 1925 ml Balance 755 ml Intake Oral 680 ml IV Total 2000 ml Output Urine Total 1925 ml # Bowel Movements 1 Medications Current Medications Medications Dose Ordered Sig/Vinicius Route Start Time Stop Time Status Last Admin Dose Admin Sodium Chloride 10 ml Q8HR IV 07/29/24 06:00 08/03/24 05:21 10 ML Sodium Chloride 1,000 ml @ 120 mls/hr Q8H20M IV 07/29/24 05:45 08/03/24 06:36 120 MLS/HR Ondansetron HCl 4 mg Q4HP PRN IV 07/29/24 05:45 Acetaminophen 650 mg Q6HP PRN PO 07/29/24 05:45 Pantoprazole Sodium 40 mg BID IV 07/29/24 22:00 08/03/24 09:11 40 MG Albuterol 2.5 mg Q6HPRN PRN NEB 07/29/24 06:30 Ipratropium [place] 0.5 mg Q6HPRN PRN NEB 07/29/24 06:30 Hydromorphone HCl 2 mg Q4HPRN PRN IV 07/30/24 13:30 08/03/24 05:23 2 MG Metoprolol Succinate 25 mg DAILY PO 07/31/24 10:00 08/03/24 09:10 25 MG Nicotine 1 patch DAILY TD 07/31/24 10:00 08/03/24 09:12 1 PATCH Laboratory Results Laboratory Tests 08/03/24 04:42 Chemistry Test 08/03/24 04:42 Albumin 3.3 g/dL (3.2-4.8) Calcium Level 8.9 mg/dL (8.7-10.4) Total Protein 6.5 g/dL (5.7-8.2) LFT Test 08/03/24 04:42 Alanine Aminotransferase (ALT) 26 U/L (7-40) Alkaline Phosphatase 101 U/L (46-116) Aspartate Amino Transferase (AST) 49 U/L (13-40) H Total Bilirubin 1.3 mg/dL (0.2-1.0) H Urinalysis Test 07/29/24 08:10 Urine Color Yellow (Yellow) Urine Clarity Clear (Clear) Urine pH 5.0 (5.0-9.0) Urine Specific [place] 1.020 (1.001-1.035) Urine Protein Trace (Negative) H Urine Ketones Negative (Negative) Urine Blood Trace /uL (Negative) H Urine Nitrite Negative (Negative) Urine Bilirubin Negative (Negative) Urine Urobilinogen Normal mg/dL (Negative) Urine Leukocyte Esterase 3+ /uL (Negative) Urine RBC 5 /hpf (0 - 3) Urine Microscopic WBC 36 /HPF (0-3) H Urine Squamous Epithelial Cells None seen /hpf (<5) Urine Bacteria None seen /hpf (None Seen) Urine Hyaline Casts Few /lpf (0 - 2) Urine Glucose Normal mg/dL (Normal) Labs and/or images reviewed: Labs reviewed by me, Image(s) reviewed by me Assessment/Plan Assessment/Plan Laceration right frontal scalp status post sutured Mechanical fall Left-sided pneumothorax, status post chest tube placement consult for Dr. Jerry appreciated Acute hypoxic respiratory failure likely from pneumothorax Left clavicular fracture Polysubstance abuse amphetamine opiates Left 3rd rib fracture in the posterior side Left Clavicle fracture ortho consult appreciated Bruise in the bilateral forearms AFib new diagnosis, cardiology consult appreciated History of COPD, no acute exacerbation Emphysema Cirrhosis of liver Multilevel degenerative neural foraminal stenosis up to severe bilaterally at C3-C4 and on the right at C4-C5 and C5-C6. Multilevel mild degenerative spinal stenosis. Moderate sized right frontal scalp contusion and a smaller high posterior midline and left parietal scalp contusion near the vertex Mildly displaced fracture of the posterior left 3rd rib Suspected liver cirrhosis Amphetamine abuse Nicotine dependence Left pleural effusion Bilateral renal mass Chest x-ray 08/02/2024 shows no pneumothorax Awaiting Removal of chest tube by Dr. Jerry Plan discussed with: Patient Date of Service: August 03, 2024 Billing Provider: RUFINO WATTS MD Common Visit Codes: [id number] INP/OBS CARE(HIGH) RUFINO WATTS MD August 03, 2024 10:56
--- NOTE | 2024-08-04 08:20 | DVHDS2 ---
Discharge Summary Date of Admission July 29, 2024 at 05:34 Date of Discharge: August 03, 2014 Admitting Diagnosis Fall injury Wounds: Pneumothorax Fracture ribs Laceration forehead Labs/Diagnostic Data: Laboratory Results Test 08/03/24 04:42 07/30/24 06:07 07/29/24 08:10 07/29/24 04:36 White Blood Count 5.8 10^3/uL (4.4-10.8) Red Blood Count 3.77 10^6/uL (4.5-5.90) Hemoglobin 12.2 g/dL (13.5-17.5) Hematocrit 35.5 % (41.0-53.0) Mean Corpuscular Volume 94.3 fL (80.0-100.0) Mean Corpuscular Hemoglobin 32.3 pg (28.0-32.0) Mean Corpuscular Hemoglobin Concent 34.3 g/dL (32.0-36.0) Red Cell Distribution Width 14.4 % (11.8-14.3) Platelet Count 188 10^3/uL (140-450) Mean Platelet Volume 6.6 fL (6.9-10.8) Neutrophils (%) (Auto) 66.0 % (37.0-80.0) Lymphocytes (%) (Auto) 13.4 % (10.0-50.0) Monocytes (%) (Auto) 15.1 % (0.0-12.0) Eosinophils (%) (Auto) 5.1 % (0.0-7.0) Basophils (%) (Auto) 0.4 % (0.0-2.0) Neutrophils # (Auto) 3.8 10 ^3/uL (1.6-8.6) Lymphocytes # (Auto) 0.8 10 ^3/uL (0.4-5.4) Monocytes # (Auto) 0.9 10 ^3/uL (0-1.3) Eosinophils # (Auto) 0.3 10 ^3/uL (0-0.8) Basophils # (Auto) 0 10 ^3/uL (0-0.2) Nucleated Red Blood Cells 0.0 % Sodium Level 140 mmol/L (136-145) Potassium Level 4.3 mmol/L (3.5-5.1) Chloride Level 110 mmol/L (98-107) Carbon Dioxide Level 24 mmol/L (20-31) Anion Gap 6 (5-15) Blood Urea Nitrogen 17 mg/dL (9-23) Creatinine 0.84 mg/dL (0.700-1.30) Glomerular Filtration Rate Calc 90 mL/min (>90) BUN/Creatinine Ratio 20.2 (10.0-20.0) Serum Glucose 93 mg/dL (74-106) Calcium Level 8.9 mg/dL (8.7-10.4) Total Bilirubin 1.3 mg/dL (0.2-1.0) Aspartate Amino Transferase (AST) 49 U/L (13-40) Alanine Aminotransferase (ALT) 26 U/L (7-40) Alkaline Phosphatase 101 U/L (46-116) Total Protein 6.5 g/dL (5.7-8.2) Albumin 3.3 g/dL (3.2-4.8) Magnesium Level 1.9 mg/dL (1.6-2.6) Triglycerides Level 56 mg/dL (< 150) Cholesterol Level 114 mg/dL (< 200) LDL Cholesterol 64 mg/dL (< 100) HDL Cholesterol 39 mg/dL (40-59) Urine Color Yellow (Yellow) Urine Clarity Clear (Clear) Urine pH 5.0 (5.0-9.0) Urine Specific [place] 1.020 (1.001-1.035) Urine Protein Trace (Negative) Urine Ketones Negative (Negative) Urine Blood Trace /uL (Negative) Urine Nitrite Negative (Negative) Urine Bilirubin Negative (Negative) Urine Urobilinogen Normal mg/dL (Negative) Urine Leukocyte Esterase 3+ /uL (Negative) Urine RBC 5 /hpf (0 - 3) Urine Microscopic WBC 36 /HPF (0-3) Urine Squamous Epithelial Cells None seen /hpf (<5) Urine Bacteria None seen /hpf (None Seen) Urine Hyaline Casts Few /lpf (0 - 2) Urine Glucose Normal mg/dL (Normal) Urine Opiates Screen Pos (NEGATIVE) Urine Fentanyl Screen Neg (NEGATIVE) Urine Barbiturates Screen Neg (NEGATIVE) Urine Phencyclidine Screen Neg (NEGATIVE) Urine Amphetamines Screen Pos (NEGATIVE) Urine Benzodiazepines Screen Neg (NEGATIVE) Urine Cocaine Screen Neg (NEGATIVE) Urine Cannabinoids Screen Neg (NEGATIVE) Hemoglobin A1c 5.2 % A1C (<5.7) Vitamin B12 Level 505 pg/mL (211-911) Vitamin D 25-Hydroxy 40.5 ng/mL (30.0-100) Folic Acid 23.23 ng/mL (>5.38) Thyroid Stimulating Hormone (TSH) 2.78 uIU/mL (0.55-4.78) Plasma/Serum Blood Alcohol < 3.0 mg/dL (<10) Hepatitis B Surface Antibody Negative (Negative) Hepatitis B Core IgM Antibody Negative (Negative) Hepatitis C Antibody Positive (Negative) Test 07/29/24 02:31 POC Glucose 103 mg/dl (70-106) Other Laboratory Tests 08/03/24 04:42 Brief Hx & Hospital Course: 79-year-old male with a history of polysubstance abuse including methamphetamine opiates AFib new diagnosis COPD cirrhosis of liver had a mechanical fall at home and came to the ER and admitted had laceration to the right frontal scalp which was sutured in the emergency room patient had left-sided pneumothorax and chest tube was placed by the ER physician followed by the pulmonology Dr. Olga alcaraz. patient also had left 3rd rib fracture and left clavicle fracture and bruise in the bilateral forearms cardiology was consult Dr. Nabila Uribe. The patient had a moderate DJD of the C-spine but no fracture patient has history of polysubstance abuse patient has been insistent to go home from the time of admission. He left AMA on 08/03/2024. Consequences complications including possible explained to the patient he verbalized understanding and still decided to leave AMA and left AMA. General condition satisfactory at the time of leaving AMA per nurse's notes. No prescriptions given as the patient left AMA Consults/Reason for consult Pulmonology Dr. Jerry Operations or Procedures Left-sided chest tube Condition at Discharge: Fair Final Diagnosis/Problems List Laceration right frontal scalp status post sutured Mechanical fall Left-sided pneumothorax, status post chest tube placement consult for Dr. Jerry appreciated Acute hypoxic respiratory failure likely from pneumothorax Left clavicular fracture Polysubstance abuse amphetamine opiates Left 3rd rib fracture in the posterior side Left Clavicle fracture ortho consult appreciated Bruise in the bilateral forearms AFib new diagnosis, cardiology consult appreciated History of COPD, no acute exacerbation Emphysema Cirrhosis of liver Multilevel degenerative neural foraminal stenosis up to severe bilaterally at C3-C4 and on the right at C4-C5 and C5-C6. Multilevel mild degenerative spinal stenosis. Moderate sized right frontal scalp contusion and a smaller high posterior midline and left parietal scalp contusion near the vertex Mildly displaced fracture of the posterior left 3rd rib Suspected liver cirrhosis Amphetamine abuse Nicotine dependence Left pleural effusion Bilateral renal mass Discharge Disposition: AMA Discharge Instruct/Medications Diet comment: NOT APPLICABLE PATIENT LEFT AMA Activity comment: NOT APPLICABLE PATIENT LEFT AMA Follow Up/Referral: NOT APPLICABLE PATIENT LEFT AMA Medications: Not applicable Patient left AMA 39 (Time taken for discharge summary 39 minutes) Discharge Statement: "Patient was advised to return to the ER or call 911 if any headaches, dizziness, shortness of breath, chest pain, abdominal pain, bleeding, fevers, or worsening of medical condition. Patient was counseled about treatment plan, medications, possible side effects, patientverbalized understanding. All questions were answered to the best of my ability. This discharge took greater then 30 minutes in planning, reviewing documentation, counseling the patient, and discussing with other team members." ASSESSMENT ASSESSMENT Hospital Course Left against medical advice Assessment Date of Service: August 03, 2024 Billing Provider: RUFINO WATTS MD Common Visit Codes: 13590-ZLA/OBS DISCH DAY >30min RUFINO WATTS MD Aug 04, 2024 08:20
== END 2024-08-03 15:30 | disposition left against medical advice (07) | DRG 199 ==
LOC: ER 00:37 → OVERFLOW 05:34 → TELE-WESTW 16:32
PROVIDERS: ADMIT Family Medicine; ATTEND Family Medicine
PROC: 0W9B30Z Drainage of Left Pleural Cavity with Drainage Device, Percutaneous Approach (ICD-10-PCS; principal; 2024-07-29)
DX: S27.0XXA Traumatic pneumothorax, initial encounter (principal); J96.01 Acute respiratory failure with hypoxia; S22.42XA Multiple fractures of ribs, left side, initial encounter for closed fracture; J90 Pleural effusion, not elsewhere classified; S01.01XA Laceration without foreign body of scalp, initial encounter; S42.002A Fracture of unspecified part of left clavicle, initial encounter for closed fracture; J43.9 Emphysema, unspecified; K74.60 Unspecified cirrhosis of liver; I48.91 Unspecified atrial fibrillation; F17.210 Nicotine dependence, cigarettes, uncomplicated; G89.29 Other chronic pain; I45.10 Unspecified right bundle-branch block; J44.9 Chronic obstructive pulmonary disease, unspecified; W11.XXXA Fall on and from ladder, initial encounter; N28.89 Other specified disorders of kidney and ureter; F15.10 Other stimulant abuse, uncomplicated; Z53.29 Procedure and treatment not carried out because of patient's decision for other reasons; M48.02 Spinal stenosis, cervical region; Y93.89 Activity, other specified; Y99.8 Other external cause status; Z82.49 Family history of ischemic heart disease and other diseases of the circulatory system; Z82.3 Family history of stroke; Y92.009 Unspecified place in unspecified non-institutional (private) residence as the place of occurrence of the external cause
CPT/HCPCS: 32556; 36415; 70450; 71045; 71250; 72125; 73000; 73120; 74176; 76775; 80053; 80061; 80307; 80320; 81001; 82306; 82607; 82746; 82962; 83036; 83735; 84443; 85025; 86705; 86706; 86803; 86850; 86900; 86901; 93005; 93306; 96374; 96375; G0378; J2405; J2470